=== PATIENT | female | born 1950 | race Caucasian/White ===

== ENCOUNTER 2018-01-02 12:12 | Emergency (ER) | payer MEDICARE, MEDICAID ==
[~2018-01-02] VITALS: Ht 172.7 cm; Wt 100.9 kg
[~2018-01-02 12:12] MED LIST: ASPI-611 PO; ATE25T PO; CALC-157; CHLO500T3 PO; CHOL100046 PO; DESV50TA PO; DICY10CA88 PO; DIGO250T PO; DOCU-28 PO; ESTR1TAB19 PO; FLUC150T5 PO; GABA300C PO; HYDR-2561 PO; HYDR12.522 PO; LEVO200T46 PO; LIPA1CAP18 PO; LORA10TA7 PO; MONT10TA21 PO; MV W1TAB4 PO; NYSPWD TP; OMEP20TA5 PO; PRAZ2CAP2 PO; ROPI1TAB4 PO; SUCR1ORA PO; TRAZ-146 PO; VITA-268 PO
[2018-01-02 12:56] LABS: BASOPHILS # (AUTO) 0.1 X10'3 (0-0.2); BASOPHILS % (AUTO) 0.5 % (0-1); EOSINOPHILS # (AUTO) 0.3 X10'3 (0-0.9); EOSINOPHILS % (AUTO) 1.8 % (0-6); HEMATOCRIT 41.7 % (35.0-45.0); HEMOGLOBIN 14.4 g/dl (12.0-16.0); LYMPHOCYTES % (AUTO) 22.6 % (21-51); MEAN CORPUSCULAR HEMOGLOBIN 30.3 PG (27.0-31.0); MEAN CORPUSCULAR HGB CONC 34.4 % (33.0-36.5); MEAN PLATELET VOLUME 8.3 FL (7.4-10.4); MONOCYTES % (AUTO) 5.7 % (2-12); NEUTROPHILS # (AUTO) 12.4 X10'3 (1.8-7.7); NEUTROPHILS % (AUTO) 69.4 % (42-75); PLATELET COUNT 266 X10'3 (140-440); RED BLOOD COUNT 4.74 X10'6 (4.20-5.60); WHITE BLOOD COUNT 17.8 X10'3 (4.5-11.0)
[2018-01-02 13:08] LABS: ALANINE AMINOTRANSFERASE 34 U/L (12-78); ALBUMIN 3.2 G/DL (3.4-5.0); ALBUMIN/GLOBULIN RATIO 0.8 (1.1-1.5); ALKALINE PHOSPHATASE 108 IU/L (46-116); ANION GAP 9 (8-16); ASPARTATE AMINO TRANSFERASE 17 U/L (10-37); BILIRUBIN,TOTAL 0.4 MG/DL (0.1-1.0); BLOOD UREA NITROGEN 15 MG/DL (7-18); BUN/CREATININE RATIO 16.9 (6.6-38.0); CALCIUM 8.5 MG/DL (8.5-10.1); CHLORIDE 104 MMOL/L (99-107); CREATININE 0.89 MG/DL (0.40-0.90); GLUCOSE 143 MG/DL (70-104); POTASSIUM 3.8 MMOL/L (3.5-5.1); SODIUM 138 MMOL/L (135-145); TOTAL CARBON DIOXIDE 24.9 MMOL/L (24-32); TOTAL PROTEIN 7.4 G/DL (6.4-8.2); eGFR 64 ML/MIN
[2018-01-02] MEDS ORDERED: benzonatate 100mg capsule PO ONE (13:15)
[2018-01-02 13:17] LABS: TOTAL CELLS COUNTED 100
[2018-01-02 13:18] LABS: PLATELET ESTIMATE NORMAL
[2018-01-02] MEDS ORDERED: CODE10LI PO (13:34)
[2018-01-02] MEDS ORDERED: LEVO750T21 PO (13:34)
[2018-01-02] MEDS ORDERED: BENZ-16 PO (13:34)
[2018-01-02] MEDS ORDERED: levoFLOXACIN 750MG TABLET PO ONE (13:35)
[2018-01-02 13:55] VITALS: BP 154/84
== END 2018-01-02 13:57 | disposition home or self-care (01) ==
LOC: ER 12:12
DX: R05 Cough (principal); J18.9 Pneumonia, unspecified organism; I48.91 Unspecified atrial fibrillation; E78.00 Pure hypercholesterolemia, unspecified; I10 Essential (primary) hypertension; J44.0 Chronic obstructive pulmonary disease with (acute) lower respiratory infection; K21.9 Gastro-esophageal reflux disease without esophagitis; E03.9 Hypothyroidism, unspecified; M79.7 Fibromyalgia; Z90.710 Acquired absence of both cervix and uterus; Z88.5 Allergy status to narcotic agent; Z60.2 Problems related to living alone; Z79.899 Other long term (current) drug therapy
CPT/HCPCS: 36415; 71046; 80053; 83605; 83880; 85025; 87040; 93005; 99285

== ENCOUNTER 2018-02-23 10:48 | Emergency (ER) | payer MEDICARE, MEDICAID ==
[~2018-02-23] VITALS: Ht 172.7 cm; Wt 100.9 kg
[~2018-02-23 10:48] MED LIST changes: +CODE10LI PO
[2018-02-23 12:12] LABS: CLARITY,URINE CLOUDY (Clear); COLOR,URINE YELLOW (Yellow); GLUCOSE, URINE NEGATIVE (Neg); KETONES,URINE NEGATIVE (Neg); LEUKOCYTE ESTERASE ,URINE NEGATIVE (Neg); NITRITES, URINE NEGATIVE (Neg); OCCULT BLOOD,URINE NEGATIVE (Neg); PROTEIN,URINE TRACE mg/dl (Neg); UROBILINOGEN,URINE 0.2 E.U/dL (0.2-1.0)
[2018-02-23 12:15] LABS: UA COLLECTION TYPE CLN CATCH MIDSTREAM
[2018-02-23 12:18] LABS: BACTERIA,URINE 2+ /HPF (Neg); HYALINE CASTS 0-3 /LPF (NEGATIVE); MUCUS STRANDS FEW /LPF (Neg); RBC,URINE 0-2 /HPF (0-2); SQUAMOUS EPITHELIAL CELL,UR MANY /LPF (FEW); WBC,URINE 0-4 /HPF (0-4)
[2018-02-23] MEDS ORDERED: HYDROcodone/acetaminophen 10/325mg tab PO ONE (13:20)
[2018-02-23] MEDS ORDERED: vancomycin/NS 1 GM ADD-VANTAGE 250 ML IV ONE (13:20)
[2018-02-23] MEDS ORDERED: ibuprofen 200mg tablet PO ONE (13:20)
[2018-02-23] MEDS ORDERED: CEPH500C5 PO (14:43)
[2018-02-23 16:52] VITALS: BP 138/46
[2018-02-23] MEDS ORDERED: HYDR-3965 PO (17:55)
== END 2018-02-23 16:59 | disposition home or self-care (01) ==
LOC: ER 10:49
DX: S39.012A Strain of muscle, fascia and tendon of lower back, initial encounter (principal); K21.9 Gastro-esophageal reflux disease without esophagitis; L03.115 Cellulitis of right lower limb; I48.91 Unspecified atrial fibrillation; E78.00 Pure hypercholesterolemia, unspecified; I10 Essential (primary) hypertension; F17.200 Nicotine dependence, unspecified, uncomplicated; J44.9 Chronic obstructive pulmonary disease, unspecified; E11.9 Type 2 diabetes mellitus without complications; E03.9 Hypothyroidism, unspecified; G89.29 Other chronic pain; M79.7 Fibromyalgia; Z98.890 Other specified postprocedural states; Z60.2 Problems related to living alone; Z79.82 Long term (current) use of aspirin; X58.XXXA Exposure to other specified factors, initial encounter; Y93.89 Activity, other specified; Y92.89 Other specified places as the place of occurrence of the external cause; Y99.8 Other external cause status
CPT/HCPCS: 81001; 82948; 96365; 96366; 99285; A6251; J3370; 99283

== ENCOUNTER 2018-03-02 10:24 | Day surgery (SDC) | payer MEDICARE, MEDICAID ==
[~2018-03-02 10:24] MED LIST changes: +CEPH500C5 PO; +HYDR-3965 PO
[2018-03-02] MEDS ORDERED: LIDOcaine 2% 5ml jelly ONE ×2 (11:08→12:05)
[2018-03-02] MEDS ORDERED: AMYL1CAP52 (11:40)
[2018-03-02] MEDS ORDERED: SIMV10TA2 PO (11:43)
[2018-03-02] MEDS ORDERED: BUSP5TAB3 PO (11:44)
[2018-03-02] MEDS ORDERED: IBUP-1984 PO (11:45)
[2018-03-02] MEDS ORDERED: GLYB2.5T4 PO (11:45)
[2018-03-02] MEDS ORDERED: DICY10CA14 PO (11:46)
== END 2018-03-02 12:29 | disposition home or self-care (01) ==
LOC: WOUND CARE 10:24
PROVIDERS: ATTEND Surgery
DX: T81.31XA Disruption of external operation (surgical) wound, not elsewhere classified, initial encounter (principal); L97.112 Non-pressure chronic ulcer of right thigh with fat layer exposed; C44.721 Squamous cell carcinoma of skin of unspecified lower limb, including hip; J44.9 Chronic obstructive pulmonary disease, unspecified; I10 Essential (primary) hypertension; K21.9 Gastro-esophageal reflux disease without esophagitis; E03.9 Hypothyroidism, unspecified; E78.00 Pure hypercholesterolemia, unspecified; I48.91 Unspecified atrial fibrillation; Z79.82 Long term (current) use of aspirin; Z87.891 Personal history of nicotine dependence; Y83.8 Other surgical procedures as the cause of abnormal reaction of the patient, or of later complication, without mention of misadventure at the time of the procedure
CPT/HCPCS: 11042; 36416; 82948; A6021; A6206; A6212

== ENCOUNTER 2018-03-08 09:11 | Day surgery (SDC) | payer MEDICARE, MEDICAID ==
[~2018-03-08 09:11] MED LIST changes: +AMYL1CAP52; +BUSP5TAB3 PO; +DICY10CA14 PO; +GLYB2.5T4 PO; -HYDR-3965 PO; +IBUP-1984 PO; +SIMV10TA2 PO
[2018-03-08] MEDS ORDERED: LIDOcaine 2% 5ml jelly ONE (09:33)
== END 2018-03-08 10:21 | disposition home or self-care (01) ==
LOC: WOUND CARE 09:11
PROVIDERS: ATTEND Surgery
DX: T81.31XD Disruption of external operation (surgical) wound, not elsewhere classified, subsequent encounter (principal); L97.112 Non-pressure chronic ulcer of right thigh with fat layer exposed; C44.721 Squamous cell carcinoma of skin of unspecified lower limb, including hip; J44.9 Chronic obstructive pulmonary disease, unspecified; I10 Essential (primary) hypertension; K21.9 Gastro-esophageal reflux disease without esophagitis; E03.9 Hypothyroidism, unspecified; E78.00 Pure hypercholesterolemia, unspecified; I48.91 Unspecified atrial fibrillation; Z79.82 Long term (current) use of aspirin; Z87.891 Personal history of nicotine dependence; Y83.8 Other surgical procedures as the cause of abnormal reaction of the patient, or of later complication, without mention of misadventure at the time of the procedure
CPT/HCPCS: 11042; 82948; 87070; 87075; 87102; 87176; A6021; A6206; A6212

== ENCOUNTER 2018-03-14 09:53 | Day surgery (SDC) | payer MEDICARE, MEDICAID ==
[2018-03-14] MEDS ORDERED: LIDOcaine 2% 5ml jelly ONE (11:00)
== END 2018-03-14 11:53 | disposition home or self-care (01) ==
LOC: WOUND CARE 09:53
PROVIDERS: ATTEND Surgery
DX: T81.31XD Disruption of external operation (surgical) wound, not elsewhere classified, subsequent encounter (principal); L97.112 Non-pressure chronic ulcer of right thigh with fat layer exposed; C44.721 Squamous cell carcinoma of skin of unspecified lower limb, including hip; J44.9 Chronic obstructive pulmonary disease, unspecified; I10 Essential (primary) hypertension; K21.9 Gastro-esophageal reflux disease without esophagitis; E03.9 Hypothyroidism, unspecified; E78.00 Pure hypercholesterolemia, unspecified; I48.91 Unspecified atrial fibrillation; Z79.82 Long term (current) use of aspirin; Z87.891 Personal history of nicotine dependence; Y83.8 Other surgical procedures as the cause of abnormal reaction of the patient, or of later complication, without mention of misadventure at the time of the procedure
CPT/HCPCS: 36416; 82948; 97597; A6021; A6206; A6212

== ENCOUNTER 2018-03-21 10:14 | Day surgery (SDC) | payer MEDICARE, MEDICAID ==
[~2018-03-21 10:14] MED LIST changes: -CEPH500C5 PO
[2018-03-21] MEDS ORDERED: LIDOcaine 2% 5ml jelly ONE (10:37)
== END 2018-03-21 12:24 | disposition home or self-care (01) ==
LOC: WOUND CARE 10:14
PROVIDERS: ATTEND Surgery
DX: T81.31XD Disruption of external operation (surgical) wound, not elsewhere classified, subsequent encounter (principal); L97.112 Non-pressure chronic ulcer of right thigh with fat layer exposed; C44.721 Squamous cell carcinoma of skin of unspecified lower limb, including hip; J44.9 Chronic obstructive pulmonary disease, unspecified; I10 Essential (primary) hypertension; K21.9 Gastro-esophageal reflux disease without esophagitis; E03.9 Hypothyroidism, unspecified; E78.00 Pure hypercholesterolemia, unspecified; I48.91 Unspecified atrial fibrillation; Z79.82 Long term (current) use of aspirin; Z87.891 Personal history of nicotine dependence; Y83.8 Other surgical procedures as the cause of abnormal reaction of the patient, or of later complication, without mention of misadventure at the time of the procedure
CPT/HCPCS: 11042; A6021; A6206; A6446

== ENCOUNTER 2018-03-28 09:26 | Day surgery (SDC) | payer MEDICARE, MEDICAID ==
[2018-03-28] MEDS ORDERED: LIDOcaine 2% 5ml jelly ONE (09:43)
== END 2018-03-28 10:10 | disposition home or self-care (01) ==
LOC: WOUND CARE 09:26
PROVIDERS: ATTEND Surgery
DX: T81.31XD Disruption of external operation (surgical) wound, not elsewhere classified, subsequent encounter (principal); L97.112 Non-pressure chronic ulcer of right thigh with fat layer exposed; C44.721 Squamous cell carcinoma of skin of unspecified lower limb, including hip; J44.9 Chronic obstructive pulmonary disease, unspecified; I10 Essential (primary) hypertension; K21.9 Gastro-esophageal reflux disease without esophagitis; E03.9 Hypothyroidism, unspecified; E78.00 Pure hypercholesterolemia, unspecified; I48.91 Unspecified atrial fibrillation; Z79.82 Long term (current) use of aspirin; Z87.891 Personal history of nicotine dependence; Y83.8 Other surgical procedures as the cause of abnormal reaction of the patient, or of later complication, without mention of misadventure at the time of the procedure
CPT/HCPCS: 11042; 36416; 82948; A6021; A6206; A6446

== ENCOUNTER 2018-04-04 09:55 | Day surgery (SDC) | payer MEDICARE, MEDICAID ==
[2018-04-04] MEDS ORDERED: LIDOcaine 2% 5ml jelly ONE (10:06)
== END 2018-04-04 11:10 | disposition home or self-care (01) ==
LOC: WOUND CARE 09:55
PROVIDERS: ATTEND Surgery
DX: T81.31XD Disruption of external operation (surgical) wound, not elsewhere classified, subsequent encounter (principal); L97.112 Non-pressure chronic ulcer of right thigh with fat layer exposed; C44.721 Squamous cell carcinoma of skin of unspecified lower limb, including hip; J44.9 Chronic obstructive pulmonary disease, unspecified; I10 Essential (primary) hypertension; K21.9 Gastro-esophageal reflux disease without esophagitis; E03.9 Hypothyroidism, unspecified; E78.00 Pure hypercholesterolemia, unspecified; I48.91 Unspecified atrial fibrillation; Z79.82 Long term (current) use of aspirin; Z87.891 Personal history of nicotine dependence
CPT/HCPCS: 97597; A6021

== ENCOUNTER 2018-04-11 09:50 | Day surgery (SDC) | payer MEDICARE, MEDICAID ==
[2018-04-11] MEDS ORDERED: LIDOcaine 2% 5ml jelly ONE (10:10)
[2018-04-11] MEDS ORDERED: nystatin 15 GM powder TP ONE (10:23)
== END 2018-04-11 11:31 | disposition home or self-care (01) ==
LOC: WOUND CARE 09:50
PROVIDERS: ATTEND Surgery
DX: T81.31XD Disruption of external operation (surgical) wound, not elsewhere classified, subsequent encounter (principal); L97.112 Non-pressure chronic ulcer of right thigh with fat layer exposed; C44.721 Squamous cell carcinoma of skin of unspecified lower limb, including hip; J44.9 Chronic obstructive pulmonary disease, unspecified; I10 Essential (primary) hypertension; K21.9 Gastro-esophageal reflux disease without esophagitis; E03.9 Hypothyroidism, unspecified; E78.00 Pure hypercholesterolemia, unspecified; I48.91 Unspecified atrial fibrillation; Z79.82 Long term (current) use of aspirin; Z87.891 Personal history of nicotine dependence
CPT/HCPCS: 97597; A6021

== ENCOUNTER 2018-04-18 10:12 | Day surgery (SDC) | payer MEDICARE, MEDICAID ==
[2018-04-18] MEDS ORDERED: LIDOcaine 2% 5ml jelly ONE (11:05)
== END 2018-04-18 11:45 | disposition home or self-care (01) ==
LOC: WOUND CARE 10:12
PROVIDERS: ATTEND Surgery
DX: T81.31XD Disruption of external operation (surgical) wound, not elsewhere classified, subsequent encounter (principal); L97.112 Non-pressure chronic ulcer of right thigh with fat layer exposed; C44.721 Squamous cell carcinoma of skin of unspecified lower limb, including hip; J44.9 Chronic obstructive pulmonary disease, unspecified; I10 Essential (primary) hypertension; K21.9 Gastro-esophageal reflux disease without esophagitis; E03.9 Hypothyroidism, unspecified; E78.00 Pure hypercholesterolemia, unspecified; I48.91 Unspecified atrial fibrillation; Z79.82 Long term (current) use of aspirin; Z87.891 Personal history of nicotine dependence; Y83.8 Other surgical procedures as the cause of abnormal reaction of the patient, or of later complication, without mention of misadventure at the time of the procedure
CPT/HCPCS: 11042; 82948; A6021; A6206

== ENCOUNTER 2018-04-25 09:57 | Day surgery (SDC) | payer MEDICARE, MEDICAID ==
[2018-04-25] MEDS ORDERED: LIDOcaine 2% 5ml jelly ONE (10:39)
== END 2018-04-25 11:20 | disposition home or self-care (01) ==
LOC: WOUND CARE 09:57
PROVIDERS: ATTEND Surgery
DX: T81.31XD Disruption of external operation (surgical) wound, not elsewhere classified, subsequent encounter (principal); L97.112 Non-pressure chronic ulcer of right thigh with fat layer exposed; C44.721 Squamous cell carcinoma of skin of unspecified lower limb, including hip; J44.9 Chronic obstructive pulmonary disease, unspecified; I10 Essential (primary) hypertension; K21.9 Gastro-esophageal reflux disease without esophagitis; E03.9 Hypothyroidism, unspecified; E78.00 Pure hypercholesterolemia, unspecified; I48.91 Unspecified atrial fibrillation; Z79.82 Long term (current) use of aspirin; Z87.891 Personal history of nicotine dependence; Y83.8 Other surgical procedures as the cause of abnormal reaction of the patient, or of later complication, without mention of misadventure at the time of the procedure
CPT/HCPCS: 97597; A6021; A6206

== ENCOUNTER 2018-05-02 10:07 | Day surgery (SDC) | payer MEDICARE, MEDICAID ==
[2018-05-02] MEDS ORDERED: LIDOcaine 2% 5ml jelly ONE (11:03)
== END 2018-05-02 11:54 | disposition home or self-care (01) ==
LOC: WOUND CARE 10:07
PROVIDERS: ATTEND Surgery
DX: T81.31XD Disruption of external operation (surgical) wound, not elsewhere classified, subsequent encounter (principal); L97.112 Non-pressure chronic ulcer of right thigh with fat layer exposed; C44.721 Squamous cell carcinoma of skin of unspecified lower limb, including hip; J44.9 Chronic obstructive pulmonary disease, unspecified; I10 Essential (primary) hypertension; K21.9 Gastro-esophageal reflux disease without esophagitis; E03.9 Hypothyroidism, unspecified; E78.00 Pure hypercholesterolemia, unspecified; I48.91 Unspecified atrial fibrillation; Z79.82 Long term (current) use of aspirin; Z87.891 Personal history of nicotine dependence; Y83.8 Other surgical procedures as the cause of abnormal reaction of the patient, or of later complication, without mention of misadventure at the time of the procedure
CPT/HCPCS: 36416; 82948; 97597; A6021; A6206

== ENCOUNTER 2018-05-09 10:00 | Day surgery (SDC) | payer MEDICARE, MEDICAID ==
[2018-05-09] MEDS ORDERED: LIDOcaine 2% 5ml jelly ONE (10:12)
[2018-05-09] MEDS ORDERED: HYDR-565 PO (14:07)
== END 2018-05-09 11:16 | disposition home or self-care (01) ==
LOC: WOUND CARE 10:00
PROVIDERS: ATTEND Surgery
DX: T81.31XD Disruption of external operation (surgical) wound, not elsewhere classified, subsequent encounter (principal); L97.112 Non-pressure chronic ulcer of right thigh with fat layer exposed; C44.721 Squamous cell carcinoma of skin of unspecified lower limb, including hip; J44.9 Chronic obstructive pulmonary disease, unspecified; I10 Essential (primary) hypertension; K21.9 Gastro-esophageal reflux disease without esophagitis; E03.9 Hypothyroidism, unspecified; E78.00 Pure hypercholesterolemia, unspecified; I48.91 Unspecified atrial fibrillation; Z79.82 Long term (current) use of aspirin; Z87.891 Personal history of nicotine dependence; Y83.8 Other surgical procedures as the cause of abnormal reaction of the patient, or of later complication, without mention of misadventure at the time of the procedure
CPT/HCPCS: 36416; 82948; 97597; A6021; A6196; A6206

== ENCOUNTER 2018-05-09 12:48 | Emergency (ER) | payer MEDICARE, MEDICAID ==
[~2018-05-09] VITALS: Ht 172.7 cm; Wt 100.0 kg
[2018-05-09] MEDS ORDERED: HYDROcodone/acetaminophen 10/325mg tab PO ONE (13:05)
[2018-05-09] MEDS ORDERED: HYDR-565 PO (14:07)
[2018-05-09 14:32] VITALS: BP 142/62
== END 2018-05-09 14:35 | disposition home or self-care (01) ==
LOC: ER 12:49
DX: S90.32XA Contusion of left foot, initial encounter (principal); S80.02XA Contusion of left knee, initial encounter; I48.91 Unspecified atrial fibrillation; E78.00 Pure hypercholesterolemia, unspecified; I10 Essential (primary) hypertension; J44.9 Chronic obstructive pulmonary disease, unspecified; E11.9 Type 2 diabetes mellitus without complications; K21.9 Gastro-esophageal reflux disease without esophagitis; M19.90 Unspecified osteoarthritis, unspecified site; G89.29 Other chronic pain; E03.9 Hypothyroidism, unspecified; Z90.710 Acquired absence of both cervix and uterus; Z98.890 Other specified postprocedural states; Z60.2 Problems related to living alone; Z88.8 Allergy status to other drugs, medicaments and biological substances; Z88.5 Allergy status to narcotic agent; Z79.82 Long term (current) use of aspirin; Z79.899 Other long term (current) drug therapy; W04.XXXA Fall while being carried or supported by other persons, initial encounter; Y93.89 Activity, other specified; Y92.89 Other specified places as the place of occurrence of the external cause; Y99.8 Other external cause status
CPT/HCPCS: 29515; 73630; 99284; L4360

== ENCOUNTER 2018-05-16 10:10 | Day surgery (SDC) | payer MEDICARE, MEDICAID ==
[~2018-05-16 10:10] MED LIST changes: +HYDR-565 PO
[2018-05-16] MEDS ORDERED: LIDOcaine 2% 5ml jelly ONE (11:01)
== END 2018-05-16 11:25 | disposition home or self-care (01) ==
LOC: WOUND CARE 10:10
PROVIDERS: ATTEND Surgery
DX: T81.31XD Disruption of external operation (surgical) wound, not elsewhere classified, subsequent encounter (principal); L97.112 Non-pressure chronic ulcer of right thigh with fat layer exposed; C44.721 Squamous cell carcinoma of skin of unspecified lower limb, including hip; J44.9 Chronic obstructive pulmonary disease, unspecified; I10 Essential (primary) hypertension; K21.9 Gastro-esophageal reflux disease without esophagitis; E03.9 Hypothyroidism, unspecified; E78.00 Pure hypercholesterolemia, unspecified; I48.91 Unspecified atrial fibrillation; Z79.82 Long term (current) use of aspirin; Z87.891 Personal history of nicotine dependence; Y83.8 Other surgical procedures as the cause of abnormal reaction of the patient, or of later complication, without mention of misadventure at the time of the procedure
CPT/HCPCS: 36416; 82948; 97597; A6021; A6212

== ENCOUNTER 2018-05-23 10:10 | Day surgery (SDC) | payer MEDICARE, MEDICAID ==
[2018-05-23] MEDS ORDERED: LIDOcaine 2% 5ml jelly ONE (11:30)
== END 2018-05-23 11:46 | disposition home or self-care (01) ==
LOC: WOUND CARE 10:10
PROVIDERS: ATTEND Surgery
DX: T81.31XD Disruption of external operation (surgical) wound, not elsewhere classified, subsequent encounter (principal); L97.112 Non-pressure chronic ulcer of right thigh with fat layer exposed; C44.721 Squamous cell carcinoma of skin of unspecified lower limb, including hip; J44.9 Chronic obstructive pulmonary disease, unspecified; I10 Essential (primary) hypertension; K21.9 Gastro-esophageal reflux disease without esophagitis; E03.9 Hypothyroidism, unspecified; E78.00 Pure hypercholesterolemia, unspecified; I48.91 Unspecified atrial fibrillation; Z79.82 Long term (current) use of aspirin; Z87.891 Personal history of nicotine dependence; Y83.8 Other surgical procedures as the cause of abnormal reaction of the patient, or of later complication, without mention of misadventure at the time of the procedure
CPT/HCPCS: 36416; 82948; 97597; A6021; A6212

== ENCOUNTER 2018-05-30 09:55 | Outpatient (CLI) | payer MEDICARE, MEDICAID | END 2018-05-30 11:21 | disposition home or self-care (01) | LOC: WOUND CARE 09:55 → EDSTATUS 10:00 → WOUND CARE 11:21 | PROVIDERS: ATTEND Surgery | DX: T81.31XD Disruption of external operation (surgical) wound, not elsewhere classified, subsequent encounter (principal); L97.112 Non-pressure chronic ulcer of right thigh with fat layer exposed; C44.721 Squamous cell carcinoma of skin of unspecified lower limb, including hip; J44.9 Chronic obstructive pulmonary disease, unspecified; I10 Essential (primary) hypertension; K21.9 Gastro-esophageal reflux disease without esophagitis; E03.9 Hypothyroidism, unspecified; E78.00 Pure hypercholesterolemia, unspecified; I48.91 Unspecified atrial fibrillation; Z79.82 Long term (current) use of aspirin; Z87.891 Personal history of nicotine dependence; Y83.8 Other surgical procedures as the cause of abnormal reaction of the patient, or of later complication, without mention of misadventure at the time of the procedure | CPT/HCPCS: 82948; 99215; A6021; A6212 ==

== ENCOUNTER 2018-06-09 10:57 | Emergency (ER) | payer MEDICARE, MEDICAID ==
[~2018-06-09] VITALS: Ht 167.6 cm; Wt 105.0 kg
[~2018-06-09 10:57] MED LIST changes: +AZIT500T PO
[2018-06-09 12:16] LABS: BASOPHILS # (AUTO) 0.1 X10'3 (0-0.2); BASOPHILS % (AUTO) 0.5 % (0-1); EOSINOPHILS # (AUTO) 0.3 X10'3 (0-0.9); EOSINOPHILS % (AUTO) 2.4 % (0-6); HEMATOCRIT 42.6 % (35.0-45.0); HEMOGLOBIN 14.7 g/dl (12.0-16.0); LYMPHOCYTES # (AUTO) 3.9 X10'3 (1.1-4.8); LYMPHOCYTES % (AUTO) 28.9 % (21-51); MEAN CORPUSCULAR HGB CONC 34.5 % (33.0-36.5); MEAN CORPUSCULAR VOLUME 86.9 FL (78-98); MEAN PLATELET VOLUME 8.2 FL (7.4-10.4); MONOCYTES # (AUTO) 0.8 X10'3 (0-0.9); MONOCYTES % (AUTO) 5.6 % (2-12); NEUTROPHILS # (AUTO) 8.5 X10'3 (1.8-7.7); NEUTROPHILS % (AUTO) 62.6 % (42-75); PLATELET COUNT 234 X10'3 (140-440); RED BLOOD COUNT 4.91 X10'6 (4.20-5.60); RED CELL DISTRIBUTION WIDTH 13.1 % (11.5-14.5); WHITE BLOOD COUNT 13.5 X10'3 (4.5-11.0)
[2018-06-09 12:34] LABS: ALANINE AMINOTRANSFERASE 21 U/L (12-78); ALBUMIN 3.2 G/DL (3.4-5.0); ALBUMIN/GLOBULIN RATIO 0.8 (1.1-1.5); ALKALINE PHOSPHATASE 103 IU/L (46-116); ANION GAP 11 (8-16); ASPARTATE AMINO TRANSFERASE 18 U/L (10-37); BILIRUBIN,TOTAL 0.2 MG/DL (0.1-1.0); BLOOD UREA NITROGEN 9 MG/DL (7-18); BUN/CREATININE RATIO 8.3 (6.6-38.0); CHLORIDE 104 MMOL/L (99-107); CREATININE 1.08 MG/DL (0.40-0.90); GLUCOSE 145 MG/DL (70-104); POTASSIUM 3.7 MMOL/L (3.5-5.1); SODIUM 139 MMOL/L (135-145); TOTAL CARBON DIOXIDE 23.8 MMOL/L (24-32); TOTAL PROTEIN 7.4 G/DL (6.4-8.2); eGFR 51 ML/MIN
[2018-06-09] MEDS ORDERED: normal saline 1000ML IV soln IVB ONE ×2 (13:10→14:10)
[2018-06-09] MEDS ORDERED: methylPREDNISolone sod succ 125mg/2ml vial IV ONE (13:10)
[2018-06-09] MEDS ORDERED: iohexol 350MG/ML 100ml bottle IV ONE (13:17)
[2018-06-09] MEDS ORDERED: albuterol 2.5 MG/3 ML nebule NEB ONE (14:10)
[2018-06-09] MEDS ORDERED: PRED20TA PO (14:50)
[2018-06-09 15:09] VITALS: BP 165/83
== END 2018-06-09 15:05 | disposition home or self-care (01) ==
LOC: ER 10:57
DX: J44.1 Chronic obstructive pulmonary disease with (acute) exacerbation (principal); J40 Bronchitis, not specified as acute or chronic; E78.00 Pure hypercholesterolemia, unspecified; I10 Essential (primary) hypertension; K21.9 Gastro-esophageal reflux disease without esophagitis; E11.9 Type 2 diabetes mellitus without complications; E03.9 Hypothyroidism, unspecified; M19.90 Unspecified osteoarthritis, unspecified site; G89.29 Other chronic pain; I48.91 Unspecified atrial fibrillation; Z90.710 Acquired absence of both cervix and uterus; Z98.890 Other specified postprocedural states; Z60.2 Problems related to living alone; Z88.0 Allergy status to penicillin; Z88.5 Allergy status to narcotic agent; Z88.8 Allergy status to other drugs, medicaments and biological substances; Z79.82 Long term (current) use of aspirin; Z79.899 Other long term (current) drug therapy
CPT/HCPCS: 36415; 71045; 71275; 80053; 83605; 85025; 87040; 93005; 94640; 94760; 96374; 99285; J2930; J7030; Q9967

== ENCOUNTER 2019-03-24 08:29 | Emergency (ER) | payer MEDICARE, MEDICAID ==
[~2019-03-24] VITALS: Ht 172.7 cm; Wt 100.0 kg
[~2019-03-24 08:29] MED LIST changes: -AZIT500T PO; -HYDR-565 PO; -TRAZ-146 PO; +TRAZ-219 PO
[2019-03-24] MEDS ORDERED: ipratropium/albuterol 3ml nebule NEB ONE (09:20)
[2019-03-24 09:39] LABS: BASOPHILS # (AUTO) 0.1 X10'3 (0-0.2); BASOPHILS % (AUTO) 0.6 % (0-1); EOSINOPHILS # (AUTO) 0.2 X10'3 (0-0.9); EOSINOPHILS % (AUTO) 2.3 % (0-6); HEMOGLOBIN 14.7 g/dl (12.0-16.0); LYMPHOCYTES # (AUTO) 2.7 X10'3 (1.1-4.8); MEAN CORPUSCULAR HGB CONC 34.2 g/dL (33.0-36.5); MEAN CORPUSCULAR VOLUME 84.9 FL (78-98); MEAN PLATELET VOLUME 8.3 FL (7.4-10.4); MONOCYTES % (AUTO) 8.9 % (2-12); NEUTROPHILS # (AUTO) 6.8 X10'3 (1.8-7.7); NEUTROPHILS % (AUTO) 63.2 % (42-75); PLATELET COUNT 234 X10'3 (140-440); RED BLOOD COUNT 5.06 X10'6 (4.20-5.60); RED CELL DISTRIBUTION WIDTH 13.6 % (11.5-14.5); WHITE BLOOD COUNT 10.8 X10'3 (4.5-11.0)
[2019-03-24 09:44] LABS: PARTIAL THROMBOPLASTIN TIME 28 SECONDS (22-32)
[2019-03-24 09:45] LABS: ALANINE AMINOTRANSFERASE 50 U/L (12-78); ALBUMIN 3.1 G/DL (3.4-5.0); ALBUMIN/GLOBULIN RATIO 0.7 (1.1-1.5); ALKALINE PHOSPHATASE 105 IU/L (46-116); ANION GAP 10 (8-16); ASPARTATE AMINO TRANSFERASE 41 U/L (10-37); BILIRUBIN,TOTAL 0.2 MG/DL (0.1-1.0); BLOOD UREA NITROGEN 13 MG/DL (7-18); BUN/CREATININE RATIO 14.8 (6.6-38.0); CALCIUM 9.1 MG/DL (8.5-10.1); CHLORIDE 104 MMOL/L (99-107); CREATININE 0.88 MG/DL (0.40-0.90); GLUCOSE 184 MG/DL (70-104); POTASSIUM 3.9 MMOL/L (3.5-5.1); SODIUM 138 MMOL/L (135-145); TOTAL CARBON DIOXIDE 24.4 MMOL/L (24-32); TOTAL PROTEIN 7.3 G/DL (6.4-8.2); eGFR 64 ML/MIN
[2019-03-24 09:50] LABS: MAGNESIUM 1.7 MG/DL (1.5-2.4)
[2019-03-24] MEDS ORDERED: vitamin d PO (10:08)
[2019-03-24] MEDS ORDERED: LIPA1CAP18 PO (10:12)
[2019-03-24] MEDS ORDERED: SYN0.088T PO (10:12)
--- NOTE | 2019-03-24 10:17 | NUR ---
relieving RN for break, pt is resting quietly on gurney, resp even and unlabored,
[2019-03-24] MEDS ORDERED: AZIT250T2 PO (10:43)
[2019-03-24] MEDS ORDERED: PRED20TA PO (10:43)
[2019-03-24] MEDS ORDERED: azithromycin 250mg tablet PO ONE (10:45)
[2019-03-24] MEDS ORDERED: predniSONE 20 mg tablet PO ONE (10:50)
[2019-03-24 11:02] VITALS: BP 138/63
== END 2019-03-24 11:04 | disposition home or self-care (01) ==
LOC: ER 08:30
DX: J44.1 Chronic obstructive pulmonary disease with (acute) exacerbation (principal); I48.91 Unspecified atrial fibrillation; E78.00 Pure hypercholesterolemia, unspecified; I10 Essential (primary) hypertension; I25.2 Old myocardial infarction; K21.9 Gastro-esophageal reflux disease without esophagitis; E11.9 Type 2 diabetes mellitus without complications; E03.9 Hypothyroidism, unspecified; M19.90 Unspecified osteoarthritis, unspecified site; F17.200 Nicotine dependence, unspecified, uncomplicated; G89.29 Other chronic pain; Z90.710 Acquired absence of both cervix and uterus; Z98.890 Other specified postprocedural states; Z88.8 Allergy status to other drugs, medicaments and biological substances; Z79.82 Long term (current) use of aspirin; Z79.2 Long term (current) use of antibiotics; Z79.899 Other long term (current) drug therapy
CPT/HCPCS: 36415; 71045; 80053; 80162; 83735; 83880; 84484; 85025; 85610; 85730; 93005; 94640; 94760; 99284; J7512

== ENCOUNTER 2019-04-18 12:21 | Inpatient (IN) | payer MEDICARE, MEDICAID ==
[~2019-04-18] VITALS: Ht 172.7 cm; Wt 104.9 kg
[~2019-04-18 12:21] MED LIST changes: -AMYL1CAP52; -CHOL100046 PO; -CODE10LI PO; -DICY10CA14 PO; -DICY10CA88 PO; -FLUC150T5 PO; -GABA300C PO; -GLYB2.5T4 PO; -IBUP-1984 PO; -LEVO200T46 PO; +PRED20TA PO; -SIMV10TA2 PO; +SYN0.088T PO; -TRAZ-219 PO; +vitamin d PO
[2019-04-18] MEDS ORDERED: normal saline 1000ML IV soln IVB ONE (13:35)
[2019-04-18 13:54] LABS: BASOPHILS # (AUTO) 0.1 X10'3 (0-0.2); BASOPHILS % (AUTO) 0.8 % (0-1); EOSINOPHILS # (AUTO) 0.3 X10'3 (0-0.9); HEMATOCRIT 41.3 % (35.0-45.0); HEMOGLOBIN 14.4 g/dl (12.0-16.0); LYMPHOCYTES # (AUTO) 2.9 X10'3 (1.1-4.8); MEAN CORPUSCULAR HGB CONC 34.9 g/dL (33.0-36.5); MEAN CORPUSCULAR VOLUME 85.9 FL (78-98); MEAN PLATELET VOLUME 8.3 FL (7.4-10.4); MONOCYTES # (AUTO) 0.8 X10'3 (0-0.9); NEUTROPHILS # (AUTO) 5.7 X10'3 (1.8-7.7); NEUTROPHILS % (AUTO) 58.2 % (42-75); PLATELET COUNT 201 X10'3 (140-440); RED BLOOD COUNT 4.81 X10'6 (4.20-5.60); RED CELL DISTRIBUTION WIDTH 13.8 % (11.5-14.5); WHITE BLOOD COUNT 9.7 X10'3 (4.5-11.0)
[2019-04-18 14:08] LABS: ALANINE AMINOTRANSFERASE 54 U/L (12-78); ALBUMIN/GLOBULIN RATIO 0.8 (1.1-1.5); ALKALINE PHOSPHATASE 103 IU/L (46-116); ANION GAP 7 (8-16); ASPARTATE AMINO TRANSFERASE 56 U/L (10-37); BILIRUBIN,TOTAL 0.2 MG/DL (0.1-1.0); BLOOD UREA NITROGEN 14 MG/DL (7-18); BUN/CREATININE RATIO 15.4 (6.6-38.0); CALCIUM 8.8 MG/DL (8.5-10.1); CHLORIDE 105 MMOL/L (99-107); CREATININE 0.91 MG/DL (0.40-0.90); GLUCOSE 238 MG/DL (70-104); POTASSIUM 4.2 MMOL/L (3.5-5.1); SODIUM 139 MMOL/L (135-145); TOTAL CARBON DIOXIDE 27.4 MMOL/L (24-32); TOTAL PROTEIN 6.8 G/DL (6.4-8.2); eGFR 62 ML/MIN
[2019-04-18 14:20] LABS: ETHANOL < 0.010 GM/DL (0.0-0.010)
[2019-04-18 14:25] LABS: URINE AMPHETAMINE SCREEN NEGATIVE (Neg); URINE BARBITUATE SCREEN NEGATIVE (Neg); URINE BENZODIAZEPINES SCREEN NEGATIVE (Neg); URINE CANNABINOID SCREEN POSITIVE (Neg); URINE COCAINE SCREEN NEGATIVE (Neg); URINE METHADONE SCREEN NEGATIVE (Neg); URINE OPIATE SCREEN NEGATIVE (Neg); URINE PHENCYCLIDINE SCREEN NEGATIVE (Neg)
[2019-04-18 14:30] LABS: CLARITY,URINE CLEAR (Clear); COLOR,URINE YELLOW (Yellow); GLUCOSE, URINE NEGATIVE (Neg); KETONES,URINE NEGATIVE (Neg); LEUKOCYTE ESTERASE ,URINE NEGATIVE (Neg); NITRITES, URINE NEGATIVE (Neg); OCCULT BLOOD,URINE NEGATIVE (Neg); PH,URINE 6.5 (4.8-8.0); PROTEIN,URINE NEGATIVE (Neg); UROBILINOGEN,URINE 0.2 E.U/dL (0.2-1.0)
[2019-04-18 14:36] LABS: UA COLLECTION TYPE STRAIGHT CATH
[2019-04-18] MEDS ORDERED: normal saline 1000ml 1,000 ML IV SCH (15:23)
[2019-04-18] MEDS ORDERED: mag hydrox/Alum hydrox/simeth 30ml oral suspension PO PRN (15:25)
[2019-04-18] MEDS ORDERED: ondansetron/PF 4mg/2ml inj IV PRN (15:25)
[2019-04-18] MEDS ORDERED: magnesium hydroxide 30ml (MOM) UD suspension PO PRN (15:25)
[2019-04-18] MEDS ORDERED: morphine 2 MG/ML inj. syringe IV PRN ×2 (15:25)
[2019-04-18] MEDS ORDERED: acetaminophen 325mg tablet PO PRN (15:25)
[2019-04-18] MEDS ORDERED: ATEN50TA PO (15:35)
[2019-04-18] MEDS ORDERED: ASPI-1265 PO (15:35)
[2019-04-18] MEDS ORDERED: B CO1TAB7 PO (15:36)
[2019-04-18] MEDS ORDERED: DOCU100C41 PO (15:37)
[2019-04-18] MEDS ORDERED: CHOL400T14 PO (15:37)
[2019-04-18] MEDS ORDERED: CHLO500T3 PO (15:37)
[2019-04-18] MEDS ORDERED: ESTR1TAB19 PO (15:38)
[2019-04-18] MEDS ORDERED: DIGO250T77 PO (15:38)
[2019-04-18] MEDS ORDERED: HYDR-3686 PO (15:40)
[2019-04-18] MEDS ORDERED: HYDR25TA4 PO (15:40)
[2019-04-18] MEDS ORDERED: LORA10TA7 PO (15:41)
[2019-04-18] MEDS ORDERED: LIPA1CAP18 PO (15:42)
[2019-04-18] MEDS ORDERED: OMEP20CA11 PO (15:43)
[2019-04-18] MEDS ORDERED: CALC-212 PO (15:44)
[2019-04-18] MEDS ORDERED: MONT10TA21 PO (15:44)
[2019-04-18] MEDS ORDERED: DESV50TA PO (15:45)
[2019-04-18] MEDS ORDERED: PRAZ5CAP PO (15:46)
[2019-04-18] MEDS ORDERED: PRAZ2CAP2 PO (15:46)
[2019-04-18] MEDS ORDERED: LEVO137T2 PO (15:51)
[2019-04-18] MEDS ORDERED: SUCR1TAB PO (15:52)
[2019-04-18] MEDS ORDERED: ROPI0.5T PO (15:52)
[2019-04-18] MEDS ORDERED: GABA-532 PO (15:53)
[2019-04-18] MEDS ORDERED: MULT1TAB74 PO (15:54)
[2019-04-18 17:23] LABS: HEMOGLOBIN A1C 8.6 % (4.5-6.2)
[2019-04-18 17:24] LABS: CHOL/HDL RATIO 4.4 (0.00-4.99); CHOLESTEROL 160 MG/DL (0-200); HDL CHOLESTEROL 36 MG/DL (35-60); LDL CHOLESTEROL 107 MG/DL (50-100); TRIGLYCERIDES 133 MG/DL (20-135)
[2019-04-18 19:00] VITALS: BP_SYST 132; BP_SYST 140; BP_SYST 152; BP_DIAS 71; BP_DIAS 82
[2019-04-18] MEDS ORDERED: furosemide 20 MG/2 ML vial IV ONE (19:25)
[2019-04-18 19:41] LABS: ABG BASE EXCESS -0.5 mmol/L (-2.0-3.0); ABG HCO3 24.5 mmol/L (22.0-26.0); ABG OXYGEN SATURATION 89.2 % (95-98); ABG PH (T) 7.393 (7.350-7.450); ABG PO2 (T) 52.8 mmHg (83-108); ALLEN'S TEST Positive; FCOHb 2.6 % (0.5-1.5); FMetHb 0.3 % (0.3-1.12); FO2Hb 86.6 % (94-100); PATIENT TEMPERATURE 36.7; RESPIRATORY RATE (OBSERVED) 18 b/min
[2019-04-18] MEDS: estradiol 1mg tablet PO SCH ×2 (21:00→22:40)
[2019-04-18] MEDS: gabapentin 300mg capsule PO SCH (21:17)
[2019-04-18] MEDS: atenolol 50mg tablet PO SCH (21:18)
[2019-04-18] MEDS: ROPINIRole 0.25mg tablet PO SCH (21:18)
[2019-04-18] MEDS: docusate sod 100mg capsule PO SCH (21:18)
[2019-04-18] MEDS: digoxin 250mcg (0.25mg) tablet PO SCH (21:19)
[2019-04-18] MEDS: sucralfate 1 gm tablet PO SCH (21:19)
[2019-04-18] MEDS: venlafaxine 25mg tablet PO SCH (21:19)
[2019-04-18] MEDS: prazosin 1mg capsule PO SCH (21:20)
[2019-04-18] MEDS: prazosin 5mg capsule PO SCH (21:20)
[2019-04-18] MEDS ORDERED: glucagon, human recombinant 1mg kit SUBCUT PRN (21:25)
[2019-04-18] MEDS ORDERED: dextrose ORAL solution 15 GM/59 ML bottle PO PRN ×2 (21:25)
[2019-04-18] MEDS ORDERED: MESSAGE TO PHARMACY PO ONE (21:25)
[2019-04-18] MEDS ORDERED: dextrose 50%-water 50ml dispensing syringe IV PRN ×2 (21:25)
[2019-04-18] MEDS: insulin glargine (Lantus) pen - multi-dose SQ SCH (22:41)
[2019-04-19] VITALS: BP 110/53
[2019-04-19] MEDS ORDERED: cyclobenzaprine 10mg tablet PO PRN
[2019-04-19] MEDS ORDERED: ipratropium/albuterol 3ml nebule NEB PRN
[2019-04-19 05:31] LABS: BASOPHILS # (AUTO) 0.1 X10'3 (0-0.2); BASOPHILS % (AUTO) 0.6 % (0-1); EOSINOPHILS # (AUTO) 0.3 X10'3 (0-0.9); HEMATOCRIT 40.1 % (35.0-45.0); HEMOGLOBIN 13.6 g/dl (12.0-16.0); LYMPHOCYTES # (AUTO) 3.3 X10'3 (1.1-4.8); LYMPHOCYTES % (AUTO) 31.7 % (21-51); MEAN CORPUSCULAR HEMOGLOBIN 29.2 PG (27.0-31.0); MEAN CORPUSCULAR HGB CONC 33.8 g/dL (33.0-36.5); MEAN CORPUSCULAR VOLUME 86.4 FL (78-98); MEAN PLATELET VOLUME 8.4 FL (7.4-10.4); MONOCYTES # (AUTO) 0.9 X10'3 (0-0.9); MONOCYTES % (AUTO) 9.1 % (2-12); NEUTROPHILS # (AUTO) 5.7 X10'3 (1.8-7.7); NEUTROPHILS % (AUTO) 55.6 % (42-75); PLATELET COUNT 202 X10'3 (140-440); RED BLOOD COUNT 4.64 X10'6 (4.20-5.60); RED CELL DISTRIBUTION WIDTH 13.7 % (11.5-14.5); WHITE BLOOD COUNT 10.3 X10'3 (4.5-11.0)
[2019-04-19 06:04] LABS: ALBUMIN 2.9 G/DL (3.4-5.0); ANION GAP 10 (8-16); BLOOD UREA NITROGEN 15 MG/DL (7-18); BUN/CREATININE RATIO 15.3 (6.6-38.0); CALCIUM 8.5 MG/DL (8.5-10.1); CHLORIDE 105 MMOL/L (99-107); CHOL/HDL RATIO 4.6 (0.00-4.99); CHOLESTEROL 151 MG/DL (0-200); CREATININE 0.98 MG/DL (0.40-0.90); GLUCOSE 151 MG/DL (70-104); HDL CHOLESTEROL 33 MG/DL (35-60); LDL CHOLESTEROL 102 MG/DL (50-100); SODIUM 141 MMOL/L (135-145); TOTAL CARBON DIOXIDE 26.2 MMOL/L (24-32); TRIGLYCERIDES 168 MG/DL (20-135); eGFR 57 ML/MIN
--- NOTE | 2019-04-19 06:35 | NUR ---
Patient in room [facility]. I have received report from MARK Luna and had the opportunity to ask questions and assume patient care.
[2019-04-19 07:12] VITALS: BP 114/45
[2019-04-19] MEDS: levoTHYROXINE 25mcg tablet PO SCH (07:52)
[2019-04-19] MEDS: levoTHYROXINE 112mcg tablet PO SCH (07:52)
[2019-04-19] MEDS: sucralfate 1 gm tablet PO SCH ×4 (07:52→20:41)
[2019-04-19] MEDS: venlafaxine 25mg tablet PO SCH ×3 (07:53→20:47)
[2019-04-19] MEDS: HYDROchlorothiazide 25mg tablet PO SCH (07:53)
[2019-04-19] MEDS: pantoprazole 40mg Tablet.DR PO SCH (07:53)
[2019-04-19] MEDS: docusate sod 100mg capsule PO SCH ×2 (07:53→20:42)
[2019-04-19] MEDS: gabapentin 300mg capsule PO SCH ×3 (07:54→20:40)
[2019-04-19] MEDS: LIPASE/PROTEASE/AMYLASE 4,200 unit CAPSULE.DR PO SCH ×3 (07:58→17:12)
[2019-04-19] MEDS: cholecalciferol (vitamin D) 400 unit tablet PO SCH (07:59)
[2019-04-19] MEDS: multivitamins, therapeutics tablet PO SCH (07:59)
[2019-04-19] MEDS ORDERED: aspirin 81mg tab.chew PO SCH (08:00)
[2019-04-19] MEDS ORDERED: furosemide 20 MG/2 ML vial IV ONE (09:30)
[2019-04-19] MEDS: aspirin 325mg tablet, delayed-release (Ecotrin) PO SCH (09:45)
[2019-04-19 11:00] VITALS: BP 138/84
--- NOTE | 2019-04-19 15:34 | NUR ---
DM consult: Pt with A1c 8.6 seen at bedside. Pt states she doesn't see an manufacturing team member or any MD for DM management however per H pt has an MD appointment this June. Pt states she does take her DM meds per rx and she doesn't usually check her BG levels unless she is feeling symptoms of hypo/hyperglycemia. Pt states she doesn't specifically follow a DM diet however she monitors her CHO intake and limites sweets. Pt provided with written and verbal DM ed with referral to outpatient DM class and RD contact information. All of patient's questions were answered at this time. Pt admit with SOB, acute on chronic hypoxemic respiratory failure, and suspected cor pulmonale. Pt reports low appetite however reports no wt loss and still able to eat. Pt currently on a CHO controlled diet with documented average of 75% PO intake. Pt denies any food allergies however reports difficulty swallowing at times, pt agreeable to BSS, ST consulted. Pt denies any constipation or diarrhea, LB 04/18. Will continue to follow. Recommendations: 1) Continue with CHO controlled diet 2) Monitor need for ONS 3) Wt per rx Addendum: 04/19/19 at [address] Amended: Links added.
[2019-04-19] MEDS ORDERED: iohexol 350MG/ML 100ml bottle IV ONE (15:50)
[2019-04-19] MEDS: MESSAGE TO NURSING PO NR (16:44)
--- NOTE | 2019-04-19 18:25 | NUR ---
Problems reprioritized. Patient report given, questions answered & plan of care reviewed with MARK Gimenez.
--- NOTE | 2019-04-19 18:30 | NUR ---
Patient in room [facility]. I have received report from Sofya FLORES and had the opportunity to ask questions and assume patient care.
[2019-04-19 20:12] VITALS: BP 138/73
[2019-04-19] MEDS: prazosin 1mg capsule PO SCH (20:40)
[2019-04-19] MEDS: atenolol 50mg tablet PO SCH (20:41)
[2019-04-19] MEDS: prazosin 5mg capsule PO SCH (20:41)
[2019-04-19] MEDS: digoxin 250mcg (0.25mg) tablet PO SCH (20:41)
[2019-04-19] MEDS: ROPINIRole 0.25mg tablet PO SCH (20:41)
[2019-04-19] MEDS: furosemide 20 MG/2 ML vial IV SCH (20:43)
[2019-04-19] MEDS: estradiol 1mg tablet PO SCH (21:14)
[2019-04-19] MEDS: insulin glargine (Lantus) pen - multi-dose SQ SCH (21:20)
[2019-04-20] VITALS: BP 136/82
[2019-04-20 05:41] LABS: ALBUMIN 3.1 G/DL (3.4-5.0); ANION GAP 10 (8-16); BLOOD UREA NITROGEN 17 MG/DL (7-18); BUN/CREATININE RATIO 17.2 (6.6-38.0); CALCIUM 8.5 MG/DL (8.5-10.1); CHLORIDE 101 MMOL/L (99-107); CREATININE 0.99 MG/DL (0.40-0.90); GLUCOSE 169 MG/DL (70-104); POTASSIUM 3.3 MMOL/L (3.5-5.1); SODIUM 138 MMOL/L (135-145); eGFR 56 ML/MIN
[2019-04-20 05:51] LABS: BASOPHILS # (AUTO) 0.1 X10'3 (0-0.2); BASOPHILS % (AUTO) 0.7 % (0-1); EOSINOPHILS # (AUTO) 0.3 X10'3 (0-0.9); EOSINOPHILS % (AUTO) 2.9 % (0-6); HEMATOCRIT 41.4 % (35.0-45.0); HEMOGLOBIN 14.1 g/dl (12.0-16.0); LYMPHOCYTES # (AUTO) 4.6 X10'3 (1.1-4.8); LYMPHOCYTES % (AUTO) 38.8 % (21-51); MEAN CORPUSCULAR HEMOGLOBIN 29.2 PG (27.0-31.0); MEAN CORPUSCULAR HGB CONC 34.1 g/dL (33.0-36.5); MEAN CORPUSCULAR VOLUME 85.6 FL (78-98); MEAN PLATELET VOLUME 8.5 FL (7.4-10.4); MONOCYTES # (AUTO) 1.2 X10'3 (0-0.9); MONOCYTES % (AUTO) 10.3 % (2-12); NEUTROPHILS # (AUTO) 5.6 X10'3 (1.8-7.7); NEUTROPHILS % (AUTO) 47.3 % (42-75); PLATELET COUNT 214 X10'3 (140-440); RED BLOOD COUNT 4.83 X10'6 (4.20-5.60); RED CELL DISTRIBUTION WIDTH 14.1 % (11.5-14.5); WHITE BLOOD COUNT 11.9 X10'3 (4.5-11.0)
--- NOTE | 2019-04-20 06:24 | NUR ---
Problems reprioritized. Patient report given, questions answered & plan of care reviewed with Samreen FLORES.
[2019-04-20 07:00] VITALS: BP 158/48
[2019-04-20] MEDS: sucralfate 1 gm tablet PO SCH ×4 (07:00→20:13)
[2019-04-20] MEDS: HYDROchlorothiazide 25mg tablet PO SCH (09:16)
[2019-04-20] MEDS: docusate sod 100mg capsule PO SCH ×2 (09:16→20:12)
[2019-04-20] MEDS: gabapentin 300mg capsule PO SCH ×3 (09:16→20:12)
[2019-04-20] MEDS: aspirin 325mg tablet, delayed-release (Ecotrin) PO SCH (09:16)
[2019-04-20] MEDS: multivitamins, therapeutics tablet PO SCH (09:16)
[2019-04-20] MEDS: venlafaxine 25mg tablet PO SCH ×3 (09:16→20:12)
[2019-04-20] MEDS: cholecalciferol (vitamin D) 400 unit tablet PO SCH (09:16)
[2019-04-20] MEDS: LIPASE/PROTEASE/AMYLASE 4,200 unit CAPSULE.DR PO SCH ×3 (09:17→17:14)
[2019-04-20] MEDS: furosemide 20 MG/2 ML vial IV SCH ×3 (09:18→20:49)
[2019-04-20] MEDS: levoTHYROXINE 25mcg tablet PO SCH (09:26)
[2019-04-20] MEDS: pantoprazole 40mg Tablet.DR PO SCH (09:27)
[2019-04-20] MEDS: levoTHYROXINE 112mcg tablet PO SCH (09:51)
[2019-04-20] MEDS: insulin Lispro (HumaLOG) vial - multi-dose SQ SCH ×3 (09:56→18:39)
[2019-04-20] MEDS: MESSAGE TO NURSING PO NR (10:43)
[2019-04-20 12:00] VITALS: BP 143/78
[2019-04-20 12:05] VITALS: BP 133/64
[2019-04-20] MEDS ORDERED: potassium Cl 20 mEq SR tablet PO PRN (12:05)
[2019-04-20] MEDS ORDERED: potassium CL 10mEq/100ml bag 100 ML IV PRN (12:05)
[2019-04-20] MEDS: potassium Cl 20 mEq SR tablet PO SCH ×2 (12:52→13:02)
[2019-04-20] MEDS: potassium Cl 20 mEq SR tablet PO PRN ×3 (12:53→22:16)
[2019-04-20 14:40] VITALS: BP 112/50
[2019-04-20 18:00] VITALS: BP 125/55
--- NOTE | 2019-04-20 18:30 | NUR ---
Patient in room [facility]. I have received report from Bianca FLORES and had the opportunity to ask questions and assume patient care.
--- NOTE | 2019-04-20 18:39 | NUR ---
Gave report to Pernell FLORES.
[2019-04-20] MEDS: prazosin 1mg capsule PO SCH (20:12)
[2019-04-20] MEDS: estradiol 1mg tablet PO SCH (20:12)
[2019-04-20] MEDS: ROPINIRole 0.25mg tablet PO SCH (20:12)
[2019-04-20] MEDS: prazosin 5mg capsule PO SCH (20:12)
[2019-04-20] MEDS: atenolol 50mg tablet PO SCH (20:13)
[2019-04-20] MEDS: digoxin 250mcg (0.25mg) tablet PO SCH (20:13)
[2019-04-20] MEDS: insulin glargine (Lantus) pen - multi-dose SQ SCH (20:57)
[2019-04-21] VITALS: BP 105/38
[2019-04-21 06:11] LABS: BASOPHILS # (AUTO) 0.1 X10'3 (0-0.2); BASOPHILS % (AUTO) 0.6 % (0-1); EOSINOPHILS # (AUTO) 0.3 X10'3 (0-0.9); EOSINOPHILS % (AUTO) 2.4 % (0-6); HEMATOCRIT 41.4 % (35.0-45.0); HEMOGLOBIN 14.3 g/dl (12.0-16.0); LYMPHOCYTES # (AUTO) 3.9 X10'3 (1.1-4.8); LYMPHOCYTES % (AUTO) 35.4 % (21-51); MEAN CORPUSCULAR HEMOGLOBIN 29.4 PG (27.0-31.0); MEAN CORPUSCULAR HGB CONC 34.5 g/dL (33.0-36.5); MEAN CORPUSCULAR VOLUME 85.2 FL (78-98); MEAN PLATELET VOLUME 8.8 FL (7.4-10.4); MONOCYTES # (AUTO) 1.1 X10'3 (0-0.9); MONOCYTES % (AUTO) 10.3 % (2-12); NEUTROPHILS # (AUTO) 5.7 X10'3 (1.8-7.7); NEUTROPHILS % (AUTO) 51.3 % (42-75); PLATELET COUNT 217 X10'3 (140-440); RED BLOOD COUNT 4.87 X10'6 (4.20-5.60); RED CELL DISTRIBUTION WIDTH 13.8 % (11.5-14.5); WHITE BLOOD COUNT 11.1 X10'3 (4.5-11.0)
[2019-04-21 06:16] LABS: ALBUMIN 3.2 G/DL (3.4-5.0); ANION GAP 11 (8-16); BLOOD UREA NITROGEN 21 MG/DL (7-18); BUN/CREATININE RATIO 20.4 (6.6-38.0); CALCIUM 8.5 MG/DL (8.5-10.1); CHLORIDE 100 MMOL/L (99-107); CREATININE 1.03 MG/DL (0.40-0.90); GLUCOSE 169 MG/DL (70-104); SODIUM 138 MMOL/L (135-145); TOTAL CARBON DIOXIDE 27.4 MMOL/L (24-32); eGFR 54 ML/MIN
--- NOTE | 2019-04-21 06:32 | NUR ---
Problems reprioritized. Patient report given, questions answered & plan of care reviewed with Samreen FLORES.
[2019-04-21 07:00] VITALS: BP 106/37
[2019-04-21] MEDS: sucralfate 1 gm tablet PO SCH ×2 (07:00→11:20)
--- NOTE | 2019-04-21 07:25 | NUR ---
MD Machado called surgical floor for another patient. made aware of this pt. critical potassium level. Oked to administer potassium and follow replacement per order. N/O for mag lab. Will cont. to monitor pt.
[2019-04-21] MEDS: insulin Lispro (HumaLOG) vial - multi-dose SQ SCH (08:39)
[2019-04-21 08:41] LABS: MAGNESIUM 1.6 MG/DL (1.5-2.4)
[2019-04-21] MEDS: potassium Cl 20 mEq SR tablet PO SCH (08:42)
[2019-04-21] MEDS: LIPASE/PROTEASE/AMYLASE 4,200 unit CAPSULE.DR PO SCH (08:42)
[2019-04-21] MEDS: HYDROchlorothiazide 25mg tablet PO SCH (08:43)
[2019-04-21] MEDS: multivitamins, therapeutics tablet PO SCH (08:43)
[2019-04-21] MEDS: gabapentin 300mg capsule PO SCH (08:43)
[2019-04-21] MEDS: cholecalciferol (vitamin D) 400 unit tablet PO SCH (08:44)
[2019-04-21] MEDS: venlafaxine 25mg tablet PO SCH (08:44)
[2019-04-21] MEDS: docusate sod 100mg capsule PO SCH (08:44)
[2019-04-21] MEDS: levoTHYROXINE 112mcg tablet PO SCH (08:44)
[2019-04-21] MEDS: aspirin 325mg tablet, delayed-release (Ecotrin) PO SCH (08:44)
[2019-04-21] MEDS: pantoprazole 40mg Tablet.DR PO SCH (08:44)
[2019-04-21] MEDS: levoTHYROXINE 25mcg tablet PO SCH (08:45)
[2019-04-21] MEDS: furosemide 20 MG/2 ML vial IV SCH (08:45)
[2019-04-21] MEDS: MESSAGE TO NURSING PO NR (08:46)
[2019-04-21 08:54] VITALS: BP 132/45
[2019-04-21] MEDS ORDERED: FURO-150 PO (10:10)
[2019-04-21] MEDS ORDERED: POTA10TA15 PO (10:10)
[2019-04-21 11:00] VITALS: BP 120/61
--- NOTE | 2019-04-21 11:57 | NUR ---
CALLED DISCHARGE PRESCRIPTIONS IN TO [facility].
--- NOTE | 2019-04-21 12:30 | NUR ---
Pt. left in a stable condition. Friend with pt. to give her a ride home. Reviewed discharge paperwork with pt. She is aware to cook pickled meat her prescriptions of potassium and Lasix at [facility]. She is aware to continue her home medications as usual but to discont. hydrochlorothiazide. She is aware that she will need to cont. her home diabetic management as she will no longer be on hospital protocol insulin. BG was checked, below 200, not treated r/t the fact this nurse cannot assess effects. Pt. given education on SOB and ALOC. IV DC'd and pressure bandage applied without tape. Pt. aware to make an appointment with her php within a week and ask for a referral for a sleep study. Also discussed possible referral to remote control assembler. Pt. is aware of her potassium level and a potassium high diet was discussed. Pt. had vape pen in charge nurse drawer, it was returned to her before she left. All other belongings taken with pt. Pt. escorted to her friend's vehicle by a hospital staff member in a w/c.
== END 2019-04-21 12:25 | disposition home or self-care (01) | DRG 189 ==
LOC: ER 12:21 → EDBEDREQTM 15:53 → SUR 3N 16:15 → OBSVTOIN 16:15 → CMPBEDREQ 19:39
PROVIDERS: ADMIT Internal Medicine; ATTEND Internal Medicine
PROC: B32T1ZZ Computerized Tomography (CT Scan) of Left Pulmonary Artery using Low Osmolar Contrast (ICD-10-PCS; principal; 2019-04-19)
PROC: B3201ZZ Computerized Tomography (CT Scan) of Thoracic Aorta using Low Osmolar Contrast (ICD-10-PCS; 2019-04-19)
PROC: B32S1ZZ Computerized Tomography (CT Scan) of Right Pulmonary Artery using Low Osmolar Contrast (ICD-10-PCS; 2019-04-19)
DX: J96.21 Acute and chronic respiratory failure with hypoxia (principal); E03.9 Hypothyroidism, unspecified; E11.42 Type 2 diabetes mellitus with diabetic polyneuropathy; I10 Essential (primary) hypertension; I27.81 Cor pulmonale (chronic); E66.9 Obesity, unspecified; E87.6 Hypokalemia; F32.9 Major depressive disorder, single episode, unspecified; F41.9 Anxiety disorder, unspecified; G47.00 Insomnia, unspecified; Z60.2 Problems related to living alone; G89.29 Other chronic pain; M19.90 Unspecified osteoarthritis, unspecified site; M54.9 Dorsalgia, unspecified; F17.210 Nicotine dependence, cigarettes, uncomplicated; I48.91 Unspecified atrial fibrillation; J44.9 Chronic obstructive pulmonary disease, unspecified; K21.9 Gastro-esophageal reflux disease without esophagitis; M79.7 Fibromyalgia; Z79.82 Long term (current) use of aspirin; I25.2 Old myocardial infarction; Z79.899 Other long term (current) drug therapy; Z68.35 Body mass index [BMI] 35.0-35.9, adult; Z85.820 Personal history of malignant melanoma of skin; Z90.710 Acquired absence of both cervix and uterus; Z88.1 Allergy status to other antibiotic agents; Z88.8 Allergy status to other drugs, medicaments and biological substances; Z91.048 Other nonmedicinal substance allergy status
CPT/HCPCS: 36415; 36600; 70450; 71046; 71275; 80048; 80053; 80061; 80305; 80320; 81003; 82140; 82803; 82948; 83036; 83735; 83880; 84443; 84484; 85018; 85025; 85379; 85610; 85651; 87070; 92508; 92616; 93005; 93306; 94667; 94668; 94760; 96360; 97110; 97116; 97162; 97530; 99285; G0378; J1815; J1940; J7030; Q9967

== ENCOUNTER 2019-07-19 08:48 | Emergency (ER) | payer MEDICARE, MEDICAID ==
[~2019-07-19] VITALS: Ht 172.7 cm; Wt 100.9 kg
[~2019-07-19 08:48] MED LIST changes: +ASPI-1265 PO; -ASPI-611 PO; -ATE25T PO; +ATEN50TA PO; +B CO1TAB7 PO; -BUSP5TAB3 PO; -CALC-157; +CALC-212 PO; +CHOL400T14 PO; -DIGO250T PO; +DIGO250T77 PO; -DOCU-28 PO; +DOCU100C41 PO; +FURO-150 PO; +GABA-532 PO; -HYDR-2561 PO; +HYDR-3686 PO; -HYDR12.522 PO; +LEVO137T2 PO; +MULT1TAB74 PO; -MV W1TAB4 PO; -NYSPWD TP; +OMEP20CA11 PO; -OMEP20TA5 PO; +ONDA4TAB6 PO; +POTA10TA15 PO; +PRAZ5CAP PO; -PRED20TA PO; +ROPI0.5T PO; -ROPI1TAB4 PO; -SUCR1ORA PO; +SUCR1TAB PO; -SYN0.088T PO; -VITA-268 PO; -vitamin d PO
[2019-07-19 09:14] LABS: BASOPHILS # (AUTO) 0.1 X10'3 (0-0.2); BASOPHILS % (AUTO) 0.6 % (0-1); EOSINOPHILS # (AUTO) 0.4 X10'3 (0-0.9); EOSINOPHILS % (AUTO) 2.8 % (0-6); HEMATOCRIT 42.8 % (35.0-45.0); HEMOGLOBIN 14.3 g/dl (12.0-16.0); LYMPHOCYTES # (AUTO) 4.4 X10'3 (1.1-4.8); LYMPHOCYTES % (AUTO) 33.1 % (21-51); MEAN CORPUSCULAR HEMOGLOBIN 30.2 PG (27.0-31.0); MEAN CORPUSCULAR HGB CONC 33.4 g/dL (33.0-36.5); MEAN CORPUSCULAR VOLUME 90.4 FL (78-98); MEAN PLATELET VOLUME 8.5 FL (7.4-10.4); MONOCYTES % (AUTO) 7.3 % (2-12); NEUTROPHILS # (AUTO) 7.5 X10'3 (1.8-7.7); NEUTROPHILS % (AUTO) 56.2 % (42-75); PLATELET COUNT 222 X10'3 (140-440); RED BLOOD COUNT 4.73 X10'6 (4.20-5.60); RED CELL DISTRIBUTION WIDTH 14.5 % (11.5-14.5); WHITE BLOOD COUNT 13.4 X10'3 (4.5-11.0)
[2019-07-19 09:28] LABS: ALANINE AMINOTRANSFERASE 24 U/L (12-78); ALBUMIN 3.1 G/DL (3.4-5.0); ALBUMIN/GLOBULIN RATIO 0.8 (1.1-1.5); ALKALINE PHOSPHATASE 97 IU/L (46-116); ANION GAP 11 (8-16); ASPARTATE AMINO TRANSFERASE 16 U/L (10-37); BILIRUBIN,TOTAL 0.3 MG/DL (0.1-1.0); BLOOD UREA NITROGEN 11 MG/DL (7-18); BUN/CREATININE RATIO 11.5 (6.6-38.0); CALCIUM 8.6 MG/DL (8.5-10.1); CHLORIDE 105 MMOL/L (99-107); CREATININE 0.96 MG/DL (0.40-0.90); GLUCOSE 188 MG/DL (70-104); POTASSIUM 3.5 MMOL/L (3.5-5.1); SODIUM 140 MMOL/L (135-145); TOTAL CARBON DIOXIDE 23.9 MMOL/L (24-32); TOTAL PROTEIN 7.2 G/DL (6.4-8.2); eGFR 58 ML/MIN
[2019-07-19] MEDS ORDERED: normal saline 1000ML IV soln IVB ONE (09:30)
[2019-07-19 09:33] LABS: CLARITY,URINE SLIGHTLY CLOUDY (Clear); COLOR,URINE YELLOW (Yellow); GLUCOSE, URINE NEGATIVE (Neg); KETONES,URINE NEGATIVE (Neg); LEUKOCYTE ESTERASE ,URINE NEGATIVE (Neg); NITRITES, URINE NEGATIVE (Neg); OCCULT BLOOD,URINE NEGATIVE (Neg); PROTEIN,URINE NEGATIVE (Neg); UROBILINOGEN,URINE 0.2 E.U/dL (0.2-1.0)
[2019-07-19 09:34] LABS: URINE HCG NEGATIVE (NEG)
[2019-07-19 09:36] LABS: UA COLLECTION TYPE CLN CATCH MIDSTREAM
[2019-07-19 09:42] LABS: SQUAMOUS EPITHELIAL CELL,UR MANY /LPF (FEW); YEAST MODERATE /HPF (NEGATIVE)
[2019-07-19 09:43] LABS: BACTERIA,URINE FEW /HPF (Neg); RBC,URINE 0-2 /HPF (0-2); WBC,URINE 0-4 /HPF (0-4)
[2019-07-19] MEDS: morphine 2 MG/ML inj. syringe IV PRN ×2 (09:43→10:06)
--- NOTE | 2019-07-19 10:05 | NUR ---
ASSESSMENT CONSULTANT AT BEDSIDE, ASKED TO WAIT UNTIL I GIVE THE PATIEN HER MORPHINE, AND ASSESSMENT CONSULTANT LEFT
[2019-07-19 10:09] LABS: LIPASE 88 U/L (73-393); MAGNESIUM 1.3 MG/DL (1.5-2.4)
--- NOTE | 2019-07-19 10:34 | NUR ---
DISCUSSED MAG 1.3 WITH MALU NAJERA, ORDERS RECEIVED
[2019-07-19] MEDS ORDERED: magnesium 2GM in 50ml NS 50 ML IV ONE (10:35)
--- NOTE | 2019-07-19 10:35 | NUR ---
to ct scan
[2019-07-19 11:08] VITALS: BP 130/67
== END 2019-07-19 11:47 | disposition home or self-care (01) ==
LOC: ER 08:48
DX: R10.30 Lower abdominal pain, unspecified (principal); R19.7 Diarrhea, unspecified; I48.91 Unspecified atrial fibrillation; E78.00 Pure hypercholesterolemia, unspecified; I10 Essential (primary) hypertension; I25.2 Old myocardial infarction; J44.9 Chronic obstructive pulmonary disease, unspecified; K21.9 Gastro-esophageal reflux disease without esophagitis; E11.9 Type 2 diabetes mellitus without complications; M19.90 Unspecified osteoarthritis, unspecified site; G89.29 Other chronic pain; F41.9 Anxiety disorder, unspecified; F32.9 Major depressive disorder, single episode, unspecified; F17.200 Nicotine dependence, unspecified, uncomplicated; Z90.710 Acquired absence of both cervix and uterus; Z98.890 Other specified postprocedural states; Z88.1 Allergy status to other antibiotic agents; Z88.8 Allergy status to other drugs, medicaments and biological substances; Z79.82 Long term (current) use of aspirin; Z79.899 Other long term (current) drug therapy
CPT/HCPCS: 36415; 74176; 80053; 81001; 81025; 83690; 83735; 85025; 85610; 96361; 96365; 96375; 99284; J2270; J3475; J7030; 96376

== ENCOUNTER 2019-10-06 09:26 | Emergency (ER) | payer MEDICARE, MEDICAID ==
[~2019-10-06] VITALS: Ht 172.7 cm; Wt 109.1 kg
[2019-10-06] MEDS ORDERED: ipratropium/albuterol 3ml nebule NEB ONE (10:25)
[2019-10-06] MEDS ORDERED: PRED20TA PO (11:57)
[2019-10-06] MEDS ORDERED: AZIT250T83 PO (11:57)
[2019-10-06 12:13] VITALS: BP 141/86
== END 2019-10-06 12:15 | disposition home or self-care (01) ==
LOC: ER 09:27
DX: S92.514A Nondisplaced fracture of proximal phalanx of right lesser toe(s), initial encounter for closed fracture (principal); J44.1 Chronic obstructive pulmonary disease with (acute) exacerbation; I48.91 Unspecified atrial fibrillation; E78.00 Pure hypercholesterolemia, unspecified; I10 Essential (primary) hypertension; I25.2 Old myocardial infarction; K21.9 Gastro-esophageal reflux disease without esophagitis; E03.9 Hypothyroidism, unspecified; M19.90 Unspecified osteoarthritis, unspecified site; G89.29 Other chronic pain; M79.7 Fibromyalgia; F41.9 Anxiety disorder, unspecified; F32.9 Major depressive disorder, single episode, unspecified; E11.40 Type 2 diabetes mellitus with diabetic neuropathy, unspecified; F10.99 Alcohol use, unspecified with unspecified alcohol-induced disorder; Z90.710 Acquired absence of both cervix and uterus; Z98.890 Other specified postprocedural states; Z60.2 Problems related to living alone; Z88.1 Allergy status to other antibiotic agents; Z88.8 Allergy status to other drugs, medicaments and biological substances; Z79.899 Other long term (current) drug therapy; W22.8XXA Striking against or struck by other objects, initial encounter; Y93.89 Activity, other specified; Y92.89 Other specified places as the place of occurrence of the external cause; Y99.8 Other external cause status; Y90.9 Presence of alcohol in blood, level not specified
CPT/HCPCS: 71045; 73630; 82948; 94640; 94760; 99283; 99284

== ENCOUNTER 2020-03-18 09:13 | Emergency (ER) | payer MEDICARE, MEDICAID ==
[~2020-03-18] VITALS: Ht 172.7 cm; Wt 100.0 kg
[~2020-03-18 09:13] MED LIST changes: +DIGO250T2 PO; -DIGO250T77 PO; -OMEP20CA11 PO; +OMEP20CA15 PO
[2020-03-18] MEDS ORDERED: normal saline 1000ML IV soln IVB ONE (09:45)
[2020-03-18] MEDS ORDERED: ondansetron/PF 4mg/2ml inj IV ONE (09:45)
[2020-03-18] MEDS ORDERED: morphine 4 MG/ML inj SYRINge IV PRN (09:45)
--- NOTE | 2020-03-18 10:12 | NUR ---
Patient to CT at this time.
[2020-03-18 10:14] LABS: BASOPHILS # (AUTO) 0.1 X10'3 (0-0.2); BASOPHILS % (AUTO) 0.8 % (0-1); EOSINOPHILS # (AUTO) 0.2 X10'3 (0-0.9); EOSINOPHILS % (AUTO) 2.1 % (0-6); HEMATOCRIT 43.8 % (35.0-45.0); HEMOGLOBIN 14.8 g/dl (12.0-16.0); LYMPHOCYTES # (AUTO) 3.4 X10'3 (1.1-4.8); LYMPHOCYTES % (AUTO) 28.5 % (21-51); MEAN CORPUSCULAR HEMOGLOBIN 31.5 PG (27.0-31.0); MEAN CORPUSCULAR HGB CONC 33.8 g/dL (33.0-36.5); MEAN CORPUSCULAR VOLUME 93.3 FL (78-98); MEAN PLATELET VOLUME 8.7 FL (7.4-10.4); MONOCYTES # (AUTO) 0.8 X10'3 (0-0.9); MONOCYTES % (AUTO) 6.8 % (2-12); NEUTROPHILS # (AUTO) 7.3 X10'3 (1.8-7.7); NEUTROPHILS % (AUTO) 61.8 % (42-75); PLATELET COUNT 201 X10'3 (140-440); RED BLOOD COUNT 4.69 X10'6 (4.20-5.60); RED CELL DISTRIBUTION WIDTH 13.6 % (11.5-14.5); WHITE BLOOD COUNT 11.8 X10'3 (4.5-11.0)
--- NOTE | 2020-03-18 10:21 | NUR ---
Patient back from CT at this time.
[2020-03-18 10:27] LABS: ALANINE AMINOTRANSFERASE 30 U/L (12-78); ALBUMIN 3.3 G/DL (3.4-5.0); ALBUMIN/GLOBULIN RATIO 0.9 (1.1-1.5); ALKALINE PHOSPHATASE 89 IU/L (46-116); ANION GAP 12 (8-16); ASPARTATE AMINO TRANSFERASE 31 U/L (10-37); BILIRUBIN,TOTAL 0.3 MG/DL (0.1-1.0); BLOOD UREA NITROGEN 13 MG/DL (7-18); CALCIUM 8.6 MG/DL (8.5-10.1); CHLORIDE 105 MMOL/L (99-107); GLUCOSE 174 MG/DL (70-104); LIPASE 102 U/L (73-393); POTASSIUM 3.7 MMOL/L (3.5-5.1); SODIUM 140 MMOL/L (135-145); TOTAL CARBON DIOXIDE 23.2 MMOL/L (24-32); TOTAL PROTEIN 7.1 G/DL (6.4-8.2); eGFR 55 ML/MIN
[2020-03-18 11:14] LABS: CLARITY,URINE CLEAR (Clear); COLOR,URINE YELLOW (Yellow); GLUCOSE, URINE NEGATIVE (Neg); KETONES,URINE NEGATIVE (Neg); LEUKOCYTE ESTERASE ,URINE NEGATIVE (Neg); NITRITES, URINE NEGATIVE (Neg); OCCULT BLOOD,URINE NEGATIVE (Neg); PROTEIN,URINE NEGATIVE (Neg); UROBILINOGEN,URINE 0.2 E.U/dL (0.2-1.0)
[2020-03-18 11:18] LABS: UA COLLECTION TYPE CLN CATCH MIDSTREAM
[2020-03-18 11:42] VITALS: BP 168/100
== END 2020-03-18 11:44 | disposition home or self-care (01) ==
LOC: ER 09:14
DX: R10.84 Generalized abdominal pain (principal); K59.01 Slow transit constipation; E78.00 Pure hypercholesterolemia, unspecified; I10 Essential (primary) hypertension; I25.2 Old myocardial infarction; I48.91 Unspecified atrial fibrillation; J44.9 Chronic obstructive pulmonary disease, unspecified; K21.9 Gastro-esophageal reflux disease without esophagitis; E11.9 Type 2 diabetes mellitus without complications; E03.9 Hypothyroidism, unspecified; M19.90 Unspecified osteoarthritis, unspecified site; G89.29 Other chronic pain; F41.9 Anxiety disorder, unspecified; F32.9 Major depressive disorder, single episode, unspecified; Z90.710 Acquired absence of both cervix and uterus; Z98.890 Other specified postprocedural states; Z72.89 Other problems related to lifestyle; Z60.2 Problems related to living alone; Z88.1 Allergy status to other antibiotic agents; Z88.8 Allergy status to other drugs, medicaments and biological substances; Z79.82 Long term (current) use of aspirin; Z79.899 Other long term (current) drug therapy
CPT/HCPCS: 36415; 74176; 80053; 81003; 83690; 85025; 96374; 96375; 99284; J2270; J2405; J7030

== ENCOUNTER 2021-10-07 09:36 | Emergency (ER) | payer MEDICARE, MEDICAID ==
[~2021-10-07] VITALS: Ht 167.6 cm; Wt 100.0 kg
[~2021-10-07 09:36] MED LIST changes: +BENZ200C53 PO; -CHLO500T3 PO; -ESTR1TAB19 PO; -FURO-150 PO; +GLIM1TAB6 PO; -HYDR-3686 PO; +HYDR12.55 PO; +LISI2.5T14 PO; -LORA10TA7 PO; +MULT-620 PO; -MULT1TAB74 PO; -ONDA4TAB6 PO; -POTA10TA15 PO; +QUET25TA36 PO; +SIMV10TA98 PO; -SUCR1TAB PO; +UMEC62.5 INH
[2021-10-07] MEDS ORDERED: normal saline 1000ML IV soln IV ONE (10:00)
[2021-10-07 10:34] LABS: BASOPHILS # (AUTO) 0.1 X10'3 (0-0.2); BASOPHILS % (AUTO) 0.6 % (0-1); EOSINOPHILS # (AUTO) 0.1 X10'3 (0-0.9); EOSINOPHILS % (AUTO) 1.4 % (0-6); HEMOGLOBIN 15.1 g/dl (12.0-16.0); LYMPHOCYTES # (AUTO) 2.5 X10'3 (1.1-4.8); LYMPHOCYTES % (AUTO) 25.4 % (21-51); MEAN CORPUSCULAR HEMOGLOBIN 31.9 PG (27.0-31.0); MEAN CORPUSCULAR HGB CONC 35.2 g/dL (33.0-36.5); MEAN CORPUSCULAR VOLUME 90.7 FL (78-98); MEAN PLATELET VOLUME 8.3 FL (7.4-10.4); MONOCYTES # (AUTO) 0.7 X10'3 (0-0.9); MONOCYTES % (AUTO) 6.7 % (2-12); NEUTROPHILS # (AUTO) 6.6 X10'3 (1.8-7.7); NEUTROPHILS % (AUTO) 65.9 % (42-75); PLATELET COUNT 229 X10'3 (140-440); RED BLOOD COUNT 4.74 X10'6 (4.20-5.60); RED CELL DISTRIBUTION WIDTH 13.6 % (11.5-14.5)
[2021-10-07 10:44] LABS: ALANINE AMINOTRANSFERASE 22 U/L (12-78); ALBUMIN 3.4 G/DL (3.4-5.0); ALBUMIN/GLOBULIN RATIO 0.8 (1.1-1.5); ALKALINE PHOSPHATASE 97 IU/L (46-116); ANION GAP 13 (8-16); ASPARTATE AMINO TRANSFERASE 20 U/L (10-37); BILIRUBIN,TOTAL 0.3 MG/DL (0.1-1.0); BLOOD UREA NITROGEN 14 MG/DL (7-18); BUN/CREATININE RATIO 12.4 (6.6-38.0); CALCIUM 8.9 MG/DL (8.5-10.1); CHLORIDE 102 MMOL/L (99-107); CREATININE 1.13 MG/DL (0.40-0.90); GLUCOSE 166 MG/DL (70-104); SODIUM 137 MMOL/L (135-145); TOTAL CARBON DIOXIDE 21.7 MMOL/L (24-32); TOTAL PROTEIN 7.5 G/DL (6.4-8.2); eGFR 48 ML/MIN
[2021-10-07] MEDS ORDERED: morphine 4 MG/ML inj SYRINge IV ONE (12:20)
[2021-10-07] MEDS ORDERED: HYDROcodone/acetaminophen 5mg/325mg tablet PO ONE (12:20)
[2021-10-07] MEDS ORDERED: ondansetron/PF 4mg/2ml inj IV ONE (12:20)
[2021-10-07] MEDS ORDERED: metroNIDAZOLE 500mg tablet PO ONE (12:20)
[2021-10-07] MEDS ORDERED: ciprofloxacin/D5W 200mg/100mL 100 ML IV ONE (12:20)
[2021-10-07] MEDS ORDERED: CIPR-202 PO (12:27)
[2021-10-07] MEDS ORDERED: METR-159 PO (12:27)
[2021-10-07] MEDS ORDERED: LOPE2CAP PO (12:27)
[2021-10-07 13:51] VITALS: BP 132/55
== END 2021-10-07 13:54 | disposition home or self-care (01) ==
LOC: ER 09:36
DX: K52.9 Noninfective gastroenteritis and colitis, unspecified (principal); K62.5 Hemorrhage of anus and rectum; R11.0 Nausea; R10.84 Generalized abdominal pain; G89.29 Other chronic pain; I10 Essential (primary) hypertension; I48.91 Unspecified atrial fibrillation; E78.00 Pure hypercholesterolemia, unspecified; I25.2 Old myocardial infarction; J44.9 Chronic obstructive pulmonary disease, unspecified; K21.9 Gastro-esophageal reflux disease without esophagitis; E11.9 Type 2 diabetes mellitus without complications; E03.9 Hypothyroidism, unspecified; M19.90 Unspecified osteoarthritis, unspecified site; F41.9 Anxiety disorder, unspecified; F32.9 Major depressive disorder, single episode, unspecified; Z90.710 Acquired absence of both cervix and uterus; Z98.890 Other specified postprocedural states; Z72.89 Other problems related to lifestyle; Z60.2 Problems related to living alone; Z88.1 Allergy status to other antibiotic agents; Z88.8 Allergy status to other drugs, medicaments and biological substances; Z79.82 Long term (current) use of aspirin; Z79.2 Long term (current) use of antibiotics; Z79.899 Other long term (current) drug therapy
CPT/HCPCS: 36415; 71045; 74176; 80053; 85025; 85610; 86885; 86900; 86901; 93005; 96361; 96365; 96375; 99285; J0744; J2270; J2405; J7030

== ENCOUNTER 2022-03-21 14:58 | Emergency (ER) | payer MEDICARE, MEDICAID ==
[~2022-03-21] VITALS: Ht 172.7 cm; Wt 104.5 kg
[~2022-03-21 14:58] MED LIST changes: +LOPE2CAP PO
[2022-03-21 15:03] VITALS: BP 122/65
[2022-03-21] MEDS ORDERED: oxyCODONE/APAP 5-325mg tablet PO ONE (17:20)
[2022-03-21] MEDS ORDERED: orphenadrine citrate 60mg/2ml inj. IM ONE (17:20)
[2022-03-21] MEDS ORDERED: ketorolac tromethamine 15mg/ml inj. IM ONE (17:20)
--- NOTE | 2022-03-21 17:50 | NUR ---
im x2 given po med given
[2022-03-21] MEDS ORDERED: ORPH100T2 PO (18:45)
== END 2022-03-21 18:45 | disposition home or self-care (01) ==
LOC: ER 14:58
DX: M54.2 Cervicalgia (principal); M62.830 Muscle spasm of back; I48.91 Unspecified atrial fibrillation; E78.00 Pure hypercholesterolemia, unspecified; I10 Essential (primary) hypertension; I25.2 Old myocardial infarction; J44.9 Chronic obstructive pulmonary disease, unspecified; K21.9 Gastro-esophageal reflux disease without esophagitis; E11.9 Type 2 diabetes mellitus without complications; M19.90 Unspecified osteoarthritis, unspecified site; G89.29 Other chronic pain; F41.9 Anxiety disorder, unspecified; F32.A Depression, unspecified; Z90.710 Acquired absence of both cervix and uterus; Z98.890 Other specified postprocedural states; Z72.89 Other problems related to lifestyle; Z60.2 Problems related to living alone; Z88.1 Allergy status to other antibiotic agents; Z88.8 Allergy status to other drugs, medicaments and biological substances; Z79.82 Long term (current) use of aspirin; Z79.899 Other long term (current) drug therapy
CPT/HCPCS: 96372; 99284; J1885; J2360

== ENCOUNTER 2022-10-26 11:22 | Emergency (ER) | payer MEDICARE, MEDICAID ==
[~2022-10-26] VITALS: Ht 172.7 cm; Wt 95.5 kg
[~2022-10-26 11:22] MED LIST changes: +ORPH100T2 PO
[2022-10-26 11:30] VITALS: BP 108/75
--- NOTE | 2022-10-26 11:43 | NUR ---
SPOKE TO ANGELIA MURO, JUST WANTS COVID TEST AND XRAY
[2022-10-26] MEDS ORDERED: dexamethasone sod phosphate 10mg/ml inj IM STA (12:05)
[2022-10-26] MEDS ORDERED: ipratropium/albuterol 3ml nebule NEB ONE (12:05)
[2022-10-26] MEDS ORDERED: PRED10TA23 PO (13:03)
[2022-10-26] MEDS ORDERED: BUDE10.2 INH (13:03)
[2022-10-26] MEDS ORDERED: ALBU6.7H14 INH (13:03)
[2022-10-26] MEDS ORDERED: AMOX-117 PO (13:03)
== END 2022-10-26 14:20 | disposition home or self-care (01) ==
LOC: ER 11:23
DX: J40 Bronchitis, not specified as acute or chronic (principal); Z20.822 Contact with and (suspected) exposure to COVID-19; J44.1 Chronic obstructive pulmonary disease with (acute) exacerbation; R06.02 Shortness of breath; I48.91 Unspecified atrial fibrillation; E78.00 Pure hypercholesterolemia, unspecified; I10 Essential (primary) hypertension; I25.2 Old myocardial infarction; K21.9 Gastro-esophageal reflux disease without esophagitis; E11.9 Type 2 diabetes mellitus without complications; M19.90 Unspecified osteoarthritis, unspecified site; G89.29 Other chronic pain; F41.9 Anxiety disorder, unspecified; F32.A Depression, unspecified; Z90.710 Acquired absence of both cervix and uterus; Z98.890 Other specified postprocedural states; Z72.89 Other problems related to lifestyle; Z60.2 Problems related to living alone; Z88.1 Allergy status to other antibiotic agents; Z88.8 Allergy status to other drugs, medicaments and biological substances; Z79.82 Long term (current) use of aspirin; Z79.2 Long term (current) use of antibiotics; Z79.899 Other long term (current) drug therapy
CPT/HCPCS: 71045; 87635; 94640; 96372; 99284; C9803; J1100; 94760

== ENCOUNTER 2023-02-21 10:14 | Emergency (ER) | payer MEDICARE, MEDICAID ==
[~2023-02-21] VITALS: Ht 172.7 cm; Wt 91.8 kg
[~2023-02-21 10:14] MED LIST changes: +ALBU6.7H14 INH; +BUDE10.2 INH; +MONT-47 PO; -MONT10TA21 PO; -ORPH100T2 PO; +ORPH100T4 PO
[2023-02-21 10:18] VITALS: BP 142/64
--- NOTE | 2023-02-21 11:41 | NUR ---
ekg [id number]
[2023-02-21] MEDS ORDERED: valacyclovir 500mg tablet PO ONE ×2 (13:10→13:15)
[2023-02-21] MEDS ORDERED: PREG50CA PO (13:15)
[2023-02-21] MEDS ORDERED: ACYC5CRE2 TOP (13:15)
[2023-02-21] MEDS ORDERED: VALA100031 PO (13:15)
[2023-02-21] MEDS ORDERED: CLOT15CR73 TOP (13:15)
== END 2023-02-21 14:30 | disposition home or self-care (01) ==
LOC: ER 10:15
DX: M54.50 Low back pain, unspecified (principal); B02.9 Zoster without complications; E78.00 Pure hypercholesterolemia, unspecified; I10 Essential (primary) hypertension; I25.2 Old myocardial infarction; J44.9 Chronic obstructive pulmonary disease, unspecified; K21.9 Gastro-esophageal reflux disease without esophagitis; E11.9 Type 2 diabetes mellitus without complications; E03.9 Hypothyroidism, unspecified; G89.29 Other chronic pain; M79.7 Fibromyalgia; F41.9 Anxiety disorder, unspecified; F32.9 Major depressive disorder, single episode, unspecified; Z90.710 Acquired absence of both cervix and uterus; Z98.890 Other specified postprocedural states; Z60.2 Problems related to living alone; Z88.1 Allergy status to other antibiotic agents; Z88.8 Allergy status to other drugs, medicaments and biological substances; Z79.82 Long term (current) use of aspirin; Z79.899 Other long term (current) drug therapy
CPT/HCPCS: 93005; 99283

== ENCOUNTER 2023-06-18 07:12 | Emergency (ER) | payer MEDICARE, MEDICAID ==
[~2023-06-18] VITALS: Ht 172.7 cm; Wt 91.5 kg
[~2023-06-18 07:12] MED LIST changes: +ACYC5CRE2 TOP; +CLOT15CR73 TOP; +PREG50CA PO; +VALA100031 PO
[2023-06-18 07:19] VITALS: TEMP 98.2
[2023-06-18] MEDS ORDERED: pantoprazole 40mg IV 80 MG in normal saline 100ml IV soln 100 ML IV ONE (07:40)
[2023-06-18 08:27] LABS: BASOPHILS # (AUTO) 0.1 X10'3 (0-0.2); BASOPHILS % (AUTO) 0.6 % (0-1); EOSINOPHILS % (AUTO) 0.3 % (0-6); HEMATOCRIT 49.4 % (35.0-45.0); HEMOGLOBIN 16.9 g/dl (12.0-16.0); LYMPHOCYTES % (AUTO) 12.8 % (21-51); MEAN CORPUSCULAR HEMOGLOBIN 31.6 PG (27.0-31.0); MEAN CORPUSCULAR HGB CONC 34.2 g/dL (33.0-36.5); MEAN CORPUSCULAR VOLUME 92.6 FL (78-98); MONOCYTES # (AUTO) 0.9 X10'3 (0-0.9); MONOCYTES % (AUTO) 5.9 % (2-12); NEUTROPHILS # (AUTO) 12.5 X10'3 (1.8-7.7); NEUTROPHILS % (AUTO) 80.4 % (42-75); PLATELET COUNT 239 X10'3 (140-440); RED BLOOD COUNT 5.34 X10'6 (4.20-5.60); RED CELL DISTRIBUTION WIDTH 13.9 % (11.5-14.5); WHITE BLOOD COUNT 15.6 X10'3 (4.5-11.0)
[2023-06-18 08:39] LABS: APTT 29 SECONDS (22-32)
[2023-06-18 08:43] LABS: ALANINE AMINOTRANSFERASE 24 U/L (12-78); ALBUMIN 3.6 G/DL (3.4-5.0); ALBUMIN/GLOBULIN RATIO 0.9 (1.1-1.5); ALKALINE PHOSPHATASE 90 IU/L (46-116); ANION GAP 14 (8-16); ASPARTATE AMINO TRANSFERASE 19 U/L (10-37); BILIRUBIN,TOTAL 0.5 MG/DL (0.1-1.0); BLOOD UREA NITROGEN 9 MG/DL (7-18); BUN/CREATININE RATIO 8.1 (10.0-20.0); CALCIUM 9.6 MG/DL (8.5-10.1); CHLORIDE 100 MMOL/L (99-107); CREATININE 1.11 MG/DL (0.40-0.90); GLUCOSE 169 MG/DL (70-104); POTASSIUM 3.7 MMOL/L (3.5-5.1); SODIUM 136 MMOL/L (135-145); TOTAL CARBON DIOXIDE 21.8 MMOL/L (24-32); TOTAL PROTEIN 7.4 G/DL (6.4-8.2); eCRCL 47 ML/MIN; eGFR 48 ML/MIN
[2023-06-18 08:44] LABS: DIGOXIN 0.9 NG/ML (0.9-1.9); ETHANOL < 10 MG/DL (<10); LIPASE 50 U/L (73-393); MAGNESIUM 1.6 MG/DL (1.5-2.4)
[2023-06-18 09:09] LABS: PROTHROMBIN TIME 10.5 SECONDS (9.0-12.0)
[2023-06-18 09:51] VITALS: BP 147/75; PULSE 73; RESP 16; O2SAT 97
[2023-06-18] MEDS ORDERED: PANT-47 PO (10:01)
== END 2023-06-18 10:35 | disposition home or self-care (01) ==
LOC: ER 07:12
DX: R10.9 Unspecified abdominal pain (principal); E78.00 Pure hypercholesterolemia, unspecified; I10 Essential (primary) hypertension; J44.9 Chronic obstructive pulmonary disease, unspecified; K21.9 Gastro-esophageal reflux disease without esophagitis; E11.9 Type 2 diabetes mellitus without complications; E03.9 Hypothyroidism, unspecified; Z88.1 Allergy status to other antibiotic agents; Z88.8 Allergy status to other drugs, medicaments and biological substances; Z79.82 Long term (current) use of aspirin; Z79.899 Other long term (current) drug therapy; Z90.710 Acquired absence of both cervix and uterus
CPT/HCPCS: 36415; 80053; 80162; 80320; 83690; 83735; 85025; 85610; 85730; 86885; 86900; 86901; 93005; 96365; 99284; C9113; J3490

== ENCOUNTER 2024-09-04 11:02 | Inpatient (IN) | payer MEDICARE, MEDICAID ==
[~2024-09-04] VITALS: Ht 172.7 cm; Wt 73.0 kg
[~2024-09-04 11:02] MED LIST changes: -ACYC5CRE2 TOP; -ATEN50TA PO; -CLOT15CR73 TOP; -DESV50TA PO; -GLIM1TAB6 PO; -LOPE2CAP PO; -ORPH100T4 PO; -PRAZ2CAP2 PO; -PRAZ5CAP PO; -UMEC62.5 INH; -VALA100031 PO
[2024-09-04 11:39] LABS: BASOPHILS # (AUTO) 0.1 X10'3 (0-0.2); BASOPHILS % (AUTO) 0.5 % (0-1); EOSINOPHILS # (AUTO) 0.2 X10'3 (0-0.9); EOSINOPHILS % (AUTO) 2.2 % (0-6); HEMATOCRIT 38.2 % (35.0-45.0); HEMOGLOBIN 12.4 g/dl (12.0-16.0); LYMPHOCYTES # (AUTO) 2.9 X10'3 (1.1-4.8); LYMPHOCYTES % (AUTO) 27.6 % (21-51); MEAN CORPUSCULAR HEMOGLOBIN 28.3 PG (27.0-31.0); MEAN CORPUSCULAR HGB CONC 32.6 g/dL (33.0-36.5); MEAN CORPUSCULAR VOLUME 86.9 FL (78-98); MEAN PLATELET VOLUME 7.4 FL (7.4-10.4); MONOCYTES # (AUTO) 0.9 X10'3 (0-0.9); MONOCYTES % (AUTO) 8.3 % (2-12); NEUTROPHILS # (AUTO) 6.5 X10'3 (1.8-7.7); NEUTROPHILS % (AUTO) 61.4 % (42-75); PLATELET COUNT 293 X10'3 (140-440); RED BLOOD COUNT 4.39 X10'6 (4.20-5.60); RED CELL DISTRIBUTION WIDTH 14.8 % (11.5-14.5); WHITE BLOOD COUNT 10.6 X10'3 (4.5-11.0)
[2024-09-04 11:51] LABS: ALANINE AMINOTRANSFERASE 14 U/L (12-78); ALBUMIN 3.3 G/DL (3.4-5.0); ALBUMIN/GLOBULIN RATIO 0.8 (1.1-1.5); ALKALINE PHOSPHATASE 88 IU/L (46-116); ANION GAP 11 (8-16); ASPARTATE AMINO TRANSFERASE 11 U/L (10-37); BILIRUBIN,TOTAL 0.4 MG/DL (0.1-1.0); BLOOD UREA NITROGEN 10 MG/DL (7-18); BUN/CREATININE RATIO 12.8 (10.0-20.0); CALCIUM 9.4 MG/DL (8.5-10.1); CHLORIDE 98 MMOL/L (99-107); CREATININE 0.78 MG/DL (0.40-0.90); GLUCOSE 106 MG/DL (70-104); POTASSIUM 3.8 MMOL/L (3.5-5.1); SODIUM 132 MMOL/L (135-145); TOTAL CARBON DIOXIDE 23.5 MMOL/L (24-32); TOTAL PROTEIN 7.5 G/DL (6.4-8.2); eCRCL 66 ML/MIN; eGFR 73 ML/MIN
[2024-09-04 11:54] LABS: PRO BRAIN NATRIURETIC PEPTIDE 110 PG/ML (0-125)
[2024-09-04 12:09] LABS: D-DIMER 5.92 MG/L FEU (0-0.50)
[2024-09-04] MEDS: HYDROcodone/acetaminophen 10/325mg tab PO ONE (12:24)
[2024-09-04 13:10] LABS: BILIRUBIN,DIRECT 0.1 MG/DL (0-0.3)
[2024-09-04] MEDS ORDERED: iohexol 350MG/ML 100ml bottle IV ONE (14:09)
[2024-09-04] MEDS: HYDROcodone/acetaminophen 5mg/325mg tablet PO ONE (17:40)
[2024-09-04] MEDS ORDERED: LAN0.125T PO (17:51)
[2024-09-04] MEDS ORDERED: ESTR1TAB28 PO (17:51)
[2024-09-04] MEDS ORDERED: GABA-1405 PO (17:51)
[2024-09-04] MEDS ORDERED: DESV100T16 PO (17:51)
[2024-09-04] MEDS ORDERED: OMEP20CA16 PO (17:51)
[2024-09-04] MEDS ORDERED: SIMV-45 PO (17:51)
[2024-09-04] MEDS ORDERED: LISI10TA27 PO (17:51)
[2024-09-04] MEDS ORDERED: ATEN50TA8 PO (17:51)
[2024-09-04] MEDS ORDERED: PRAZ5CAP2 PO (17:51)
[2024-09-04] MEDS ORDERED: HYDROcodone/acetaminophen 5mg/325mg tablet PO PRN (18:15)
[2024-09-04] MEDS ORDERED: potassium Cl 40MEQ/1/2NS 520ml 520 ML IV PRN (18:15)
[2024-09-04] MEDS ORDERED: ondansetron/PF 4mg/2ml inj IV PRN (18:15)
[2024-09-04] MEDS ORDERED: magnesium sulf-water 2g/50mL 50 ML IV PRN (18:15)
[2024-09-04] MEDS ORDERED: potassium Cl 20 mEq SR tablet PO PRN (18:15)
[2024-09-04] MEDS ORDERED: acetaminophen 325mg tablet PO PRN ×2 (18:15)
[2024-09-04] MEDS ORDERED: magnesium Cl slow-release 64mg tablet PO PRN (18:15)
[2024-09-04] MEDS ORDERED: mag hydrox/Alum hydrox/simeth 30ml oral suspension PO PRN (18:15)
[2024-09-04] MEDS ORDERED: morphine 2 MG/ML inj. syringe IV PRN (18:15)
[2024-09-04] MEDS ORDERED: magnesium sulf-water 4G/100mL 100 ML IV PRN (18:15)
[2024-09-04 19:11] LABS: HEMOGLOBIN A1C 5.2 % (4.5-6.2)
[2024-09-04] MEDS ORDERED: albuterol 2.5 MG/3 ML nebule NEB PRN (19:15)
[2024-09-04 19:23] LABS: DIGOXIN 0.8 NG/ML (0.9-1.9); THYROID STIMULATING HORMONE 5.8 ulU/ml (0.34-4.50)
[2024-09-04 19:35] LABS: PROTHROMBIN TIME 10.4 SECONDS (9.0-12.0)
[2024-09-04 20:00] LABS: BILIRUBIN,URINE NEGATIVE (Neg); CLARITY,URINE CLOUDY (Clear); COLOR,URINE YELLOW (Yellow); GLUCOSE, URINE NEGATIVE (Neg); KETONES,URINE NEGATIVE (Neg); LEUKOCYTE ESTERASE ,URINE NEGATIVE (Neg); NITRITES, URINE NEGATIVE (Neg); OCCULT BLOOD,URINE NEGATIVE (Neg); PH,URINE 6.5 (4.8-8.0); PROTEIN,URINE >=300 mg/dl (Neg); UROBILINOGEN,URINE 0.2 E.U/dL (0.2-1.0)
[2024-09-04] MEDS ORDERED: budesonide 0.5mg/2ml UD nebule IH PRN (20:00)
[2024-09-04 20:15] LABS: URINE AMPHETAMINE SCREEN NEGATIVE (Neg); URINE BARBITUATE SCREEN NEGATIVE (Neg); URINE BENZODIAZEPINES SCREEN NEGATIVE (Neg); URINE CANNABINOID SCREEN NEGATIVE (Neg); URINE COCAINE SCREEN NEGATIVE (Neg); URINE METHADONE SCREEN NEGATIVE (Neg); URINE OPIATE SCREEN POSITIVE (Neg); URINE PHENCYCLIDINE SCREEN NEGATIVE (Neg)
[2024-09-04] MEDS: K and/or MAG REPLACEMENT MC SCH (20:21)
[2024-09-04 20:35] LABS: UA COLLECTION TYPE OTHER
[2024-09-04 20:38] LABS: BACTERIA,URINE 2+ /HPF (Neg); SQUAMOUS EPITHELIAL CELL,UR MANY /LPF (FEW)
[2024-09-04 20:39] LABS: WBC,URINE 0-4 /HPF (0-4); YEAST FEW /HPF (NEGATIVE)
[2024-09-04 20:40] LABS: RBC,URINE NONE SEEN /HPF (0-2)
[2024-09-04] MEDS: simvastatin 20mg tablet PO SCH (21:04)
[2024-09-04] MEDS: gabapentin 300mg capsule PO SCH (21:04)
[2024-09-04] MEDS: docusate sod 100mg capsule PO SCH (21:04)
[2024-09-04] MEDS: normal saline 1000ml 1,000 ML IV SCH (21:07)
[2024-09-04 22:18] VITALS: PULSE 85; RESP 16; O2SAT 95
[2024-09-05] VITALS (8 sets, daily range): BP systolic 132–149; BP diastolic 51–68; PULSE 57–84; RESP 16–23; TEMP 98.1–98.3; O2SAT 95–98
[2024-09-05 07:33] LABS: PROTHROMBIN TIME 10.8 SECONDS (9.0-12.0)
[2024-09-05 07:37] LABS: ALANINE AMINOTRANSFERASE 18 U/L (12-78); ALBUMIN 3.3 G/DL (3.4-5.0); ALBUMIN/GLOBULIN RATIO 0.8 (1.1-1.5); ALKALINE PHOSPHATASE 78 IU/L (46-116); ANION GAP 12 (8-16); ASPARTATE AMINO TRANSFERASE 12 U/L (10-37); BASOPHILS % (AUTO) 0.5 % (0-1); BILIRUBIN,TOTAL 0.4 MG/DL (0.1-1.0); BLOOD UREA NITROGEN 8 MG/DL (7-18); BUN/CREATININE RATIO 12.5 (10.0-20.0); CHLORIDE 99 MMOL/L (99-107); CHOL/HDL RATIO 2.4 (0.00-4.99); CHOLESTEROL 142 MG/DL (0-200); CREATININE 0.64 MG/DL (0.40-0.90); EOSINOPHILS # (AUTO) 0.3 X10'3 (0-0.9); EOSINOPHILS % (AUTO) 3.2 % (0-6); GLUCOSE 85 MG/DL (70-104); HDL CHOLESTEROL 59 MG/DL (35-60); HEMATOCRIT 33.9 % (35.0-45.0); HEMOGLOBIN 11.3 g/dl (12.0-16.0); LDL CHOLESTEROL 68 MG/DL (50-100); LYMPHOCYTES # (AUTO) 2.7 X10'3 (1.1-4.8); LYMPHOCYTES % (AUTO) 27.8 % (21-51); MAGNESIUM 1.7 MG/DL (1.5-2.4); MEAN CORPUSCULAR HEMOGLOBIN 28.5 PG (27.0-31.0); MEAN CORPUSCULAR HGB CONC 33.2 g/dL (33.0-36.5); MEAN CORPUSCULAR VOLUME 85.8 FL (78-98); MEAN PLATELET VOLUME 7.6 FL (7.4-10.4); MONOCYTES # (AUTO) 0.9 X10'3 (0-0.9); MONOCYTES % (AUTO) 9.5 % (2-12); NEUTROPHILS # (AUTO) 5.8 X10'3 (1.8-7.7); PHOSPHORUS 3.3 MG/DL (2.3-4.5); PLATELET COUNT 279 X10'3 (140-440); POTASSIUM 3.3 MMOL/L (3.5-5.1); RED BLOOD COUNT 3.95 X10'6 (4.20-5.60); RED CELL DISTRIBUTION WIDTH 14.8 % (11.5-14.5); SODIUM 133 MMOL/L (135-145); TOTAL CARBON DIOXIDE 22.5 MMOL/L (24-32); TOTAL PROTEIN 7.2 G/DL (6.4-8.2); TRIGLYCERIDES 128 MG/DL (20-135); WHITE BLOOD COUNT 9.8 X10'3 (4.5-11.0); eCRCL 80 ML/MIN; eGFR > 90 ML/MIN
[2024-09-05] MEDS: LIPASE/PROTEASE/AMYLASE 4,200 unit CAPSULE.DR PO SCH (08:37)
[2024-09-05] MEDS: potassium Cl 20 mEq SR tablet PO PRN (08:48)
[2024-09-05] MEDS: levoTHYROXINE 25mcg tablet PO SCH (08:49)
[2024-09-05] MEDS: levoTHYROXINE 112mcg tablet PO SCH (08:49)
[2024-09-05] MEDS: pantoprazole 40mg Tablet.DR PO SCH (08:52)
[2024-09-05] MEDS: LIPASE/PROTEASE/AMYLASE 10,500 units CAPSULE.DR PO SCH (08:53)
[2024-09-05] MEDS: HYDROcodone/acetaminophen 10/325mg tab PO PRN (13:22)
[2024-09-05] MEDS ORDERED: albuterol 2.5 MG/3 ML nebule NEB SCH (18:39)
[2024-09-05] MEDS ORDERED: albuterol 2.5 MG/3 ML nebule NEB PRN (18:40)
[2024-09-05] MEDS ORDERED: non-formulary drug (Albuterol Sulfate (Proventil Hfa) 2 PUFFS) INH SCH (20:00)
[2024-09-06] VITALS (9 sets, daily range): BP systolic 122–148; BP diastolic 47–72; PULSE 52–86; RESP 12–22; TEMP 97.4–98.1; O2SAT 95–98
[2024-09-06] MEDS: DESVENLAFAXINE SUCCINATE 100 MG PO SCH (08:00)
[2024-09-06 08:10] LABS: BASOPHILS % (AUTO) 0.3 % (0-1); EOSINOPHILS # (AUTO) 0.3 X10'3 (0-0.9); EOSINOPHILS % (AUTO) 3.3 % (0-6); HEMATOCRIT 33.9 % (35.0-45.0); HEMOGLOBIN 11.5 g/dl (12.0-16.0); LYMPHOCYTES # (AUTO) 2.3 X10'3 (1.1-4.8); LYMPHOCYTES % (AUTO) 28.4 % (21-51); MEAN CORPUSCULAR HGB CONC 33.9 g/dL (33.0-36.5); MEAN CORPUSCULAR VOLUME 85.4 FL (78-98); MEAN PLATELET VOLUME 7.4 FL (7.4-10.4); MONOCYTES # (AUTO) 0.8 X10'3 (0-0.9); NEUTROPHILS # (AUTO) 4.6 X10'3 (1.8-7.7); PLATELET COUNT 262 X10'3 (140-440); RED BLOOD COUNT 3.97 X10'6 (4.20-5.60); RED CELL DISTRIBUTION WIDTH 14.6 % (11.5-14.5)
[2024-09-06] MEDS: multivitamins, therapeutics tablet PO SCH (08:12)
[2024-09-06] MEDS: lisinopril 10 MG tablet PO SCH (08:13)
[2024-09-06 08:18] LABS: PROTHROMBIN TIME 10.9 SECONDS (9.0-12.0)
[2024-09-06 08:20] LABS: ALANINE AMINOTRANSFERASE 13 U/L (12-78); ALBUMIN 3.1 G/DL (3.4-5.0); ALBUMIN/GLOBULIN RATIO 0.8 (1.1-1.5); ALKALINE PHOSPHATASE 72 IU/L (46-116); ANION GAP 8 (8-16); ASPARTATE AMINO TRANSFERASE 21 U/L (10-37); BILIRUBIN,TOTAL 0.4 MG/DL (0.1-1.0); BLOOD UREA NITROGEN 6 MG/DL (7-18); BUN/CREATININE RATIO 9.1 (10.0-20.0); CALCIUM 8.9 MG/DL (8.5-10.1); CHLORIDE 103 MMOL/L (99-107); CREATININE 0.66 MG/DL (0.40-0.90); GLUCOSE 99 MG/DL (70-104); MAGNESIUM 1.8 MG/DL (1.5-2.4); POTASSIUM 3.5 MMOL/L (3.5-5.1); SODIUM 133 MMOL/L (135-145); TOTAL CARBON DIOXIDE 22.1 MMOL/L (24-32); TOTAL PROTEIN 6.8 G/DL (6.4-8.2); eCRCL 78 ML/MIN; eGFR 88 ML/MIN
[2024-09-06] MEDS: vitamin B comp w/Vit. C tab 1 TAB TABLET PO SCH (13:35)
[2024-09-06] MEDS: FLU VACC TS2024-25(6MOS UP)/PF 45 MCG/0.5 ML SYRINGE IMVAC ONE (13:39)
[2024-09-06] MEDS: pneumococcal 23-VAL P-sac vacc 25 mcg/0.5ml vial IMVAC ONE (13:45)
[2024-09-07] VITALS (8 sets, daily range): BP systolic 119–163; BP diastolic 45–64; PULSE 67–93; RESP 14–19; TEMP 97.5–97.8; O2SAT 94–96
[2024-09-07] MEDS: temazepam 15mg capsule PO ONE ×2 (00:30→20:51)
[2024-09-07 07:40] LABS: BASOPHILS % (AUTO) 0.5 % (0-1); EOSINOPHILS # (AUTO) 0.4 X10'3 (0-0.9); EOSINOPHILS % (AUTO) 3.9 % (0-6); HEMATOCRIT 34.9 % (35.0-45.0); HEMOGLOBIN 11.5 g/dl (12.0-16.0); LYMPHOCYTES # (AUTO) 2.9 X10'3 (1.1-4.8); LYMPHOCYTES % (AUTO) 31.6 % (21-51); MEAN CORPUSCULAR HEMOGLOBIN 28.4 PG (27.0-31.0); MEAN CORPUSCULAR HGB CONC 33.1 g/dL (33.0-36.5); MEAN CORPUSCULAR VOLUME 85.8 FL (78-98); MEAN PLATELET VOLUME 7.4 FL (7.4-10.4); MONOCYTES # (AUTO) 0.9 X10'3 (0-0.9); MONOCYTES % (AUTO) 9.8 % (2-12); NEUTROPHILS % (AUTO) 54.2 % (42-75); PLATELET COUNT 281 X10'3 (140-440); RED BLOOD COUNT 4.07 X10'6 (4.20-5.60); RED CELL DISTRIBUTION WIDTH 14.6 % (11.5-14.5); WHITE BLOOD COUNT 9.3 X10'3 (4.5-11.0)
[2024-09-07 07:43] LABS: PROTHROMBIN TIME 10.9 SECONDS (9.0-12.0)
[2024-09-07 07:48] LABS: ALANINE AMINOTRANSFERASE 15 U/L (12-78); ALBUMIN 3.1 G/DL (3.4-5.0); ALBUMIN/GLOBULIN RATIO 0.8 (1.1-1.5); ALKALINE PHOSPHATASE 70 IU/L (46-116); ANION GAP 8 (8-16); ASPARTATE AMINO TRANSFERASE 20 U/L (10-37); BILIRUBIN,TOTAL 0.3 MG/DL (0.1-1.0); BLOOD UREA NITROGEN 8 MG/DL (7-18); CALCIUM 8.9 MG/DL (8.5-10.1); CHLORIDE 101 MMOL/L (99-107); CREATININE 0.73 MG/DL (0.40-0.90); GLUCOSE 101 MG/DL (70-104); MAGNESIUM 1.7 MG/DL (1.5-2.4); PHOSPHORUS 3.9 MG/DL (2.3-4.5); POTASSIUM 3.7 MMOL/L (3.5-5.1); SODIUM 131 MMOL/L (135-145); TOTAL CARBON DIOXIDE 22.1 MMOL/L (24-32); eCRCL 70 ML/MIN; eGFR 78 ML/MIN
[2024-09-07] MEDS: PERFLUTREN PROTEIN-A MICROSPHR (Optison) 0.22 MG/ML 3ML VIAL IV ONE (08:05)
[2024-09-07] MEDS ORDERED: GABA-1405 PO (16:27)
[2024-09-07] MEDS: LIPASE/PROTEASE/AMYLASE 4,200 unit CAPSULE.DR PO SCH (20:50)
[2024-09-08 02:00] VITALS: BP 123/55; PULSE 72; RESP 18; TEMP 98; O2SAT 95
[2024-09-08 05:30] LABS: BASOPHILS % (AUTO) 0.4 % (0-1); EOSINOPHILS # (AUTO) 0.3 X10'3 (0-0.9); EOSINOPHILS % (AUTO) 3.1 % (0-6); HEMATOCRIT 35.5 % (35.0-45.0); HEMOGLOBIN 11.8 g/dl (12.0-16.0); LYMPHOCYTES # (AUTO) 3.4 X10'3 (1.1-4.8); LYMPHOCYTES % (AUTO) 32.6 % (21-51); MEAN CORPUSCULAR HEMOGLOBIN 28.5 PG (27.0-31.0); MEAN CORPUSCULAR HGB CONC 33.2 g/dL (33.0-36.5); MEAN CORPUSCULAR VOLUME 85.8 FL (78-98); MEAN PLATELET VOLUME 7.5 FL (7.4-10.4); MONOCYTES % (AUTO) 9.4 % (2-12); NEUTROPHILS # (AUTO) 5.7 X10'3 (1.8-7.7); NEUTROPHILS % (AUTO) 54.5 % (42-75); PLATELET COUNT 304 X10'3 (140-440); RED BLOOD COUNT 4.13 X10'6 (4.20-5.60); RED CELL DISTRIBUTION WIDTH 14.8 % (11.5-14.5); WHITE BLOOD COUNT 10.4 X10'3 (4.5-11.0)
[2024-09-08 05:45] LABS: PROTHROMBIN TIME 10.5 SECONDS (9.0-12.0)
[2024-09-08 05:46] LABS: ALANINE AMINOTRANSFERASE 15 U/L (12-78); ALBUMIN 3.1 G/DL (3.4-5.0); ALBUMIN/GLOBULIN RATIO 0.8 (1.1-1.5); ALKALINE PHOSPHATASE 75 IU/L (46-116); ANION GAP 7 (8-16); ASPARTATE AMINO TRANSFERASE 17 U/L (10-37); BILIRUBIN,TOTAL 0.3 MG/DL (0.1-1.0); BLOOD UREA NITROGEN 10 MG/DL (7-18); BUN/CREATININE RATIO 12.5 (10.0-20.0); CALCIUM 9.2 MG/DL (8.5-10.1); CHLORIDE 103 MMOL/L (99-107); GLUCOSE 97 MG/DL (70-104); MAGNESIUM 1.7 MG/DL (1.5-2.4); PHOSPHORUS 4.3 MG/DL (2.3-4.5); POTASSIUM 3.6 MMOL/L (3.5-5.1); SODIUM 133 MMOL/L (135-145); TOTAL CARBON DIOXIDE 22.9 MMOL/L (24-32); TOTAL PROTEIN 7.1 G/DL (6.4-8.2); eCRCL 64 ML/MIN; eGFR 71 ML/MIN
[2024-09-08 06:00] VITALS: BP 113/46; PULSE 62; RESP 16; TEMP 97.6; O2SAT 96
[2024-09-08 08:00] VITALS: RESP 22; O2SAT 96
[2024-09-08] MEDS: magnesium hydroxide 30ml (MOM) UD suspension PO PRN (08:33)
[2024-09-08] MEDS: atenolol 50mg tablet PO SCH (08:35)
[2024-09-08 08:36] VITALS: BP_SYST 113
[2024-09-08 11:42] VITALS: PULSE 59; RESP 16; O2SAT 97
== END 2024-09-08 12:19 | disposition home health service (06) | DRG 640 ==
LOC: ER 11:02 → ED HOLD 18:20 → EDBEDREQ 21:10 → PCU 3S 09-05 05:33
PROVIDERS: ADMIT Internal Medicine; ATTEND Internal Medicine
PROC: B32T1ZZ Computerized Tomography (CT Scan) of Left Pulmonary Artery using Low Osmolar Contrast (ICD-10-PCS; principal; 2024-09-04)
PROC: B3201ZZ Computerized Tomography (CT Scan) of Thoracic Aorta using Low Osmolar Contrast (ICD-10-PCS; 2024-09-04)
PROC: B32S1ZZ Computerized Tomography (CT Scan) of Right Pulmonary Artery using Low Osmolar Contrast (ICD-10-PCS; 2024-09-04)
PROC: 3E02340 Introduction of Influenza Vaccine into Muscle, Percutaneous Approach (ICD-10-PCS; 2024-09-06)
DX: E87.1 Hypo-osmolality and hyponatremia (principal); G93.41 Metabolic encephalopathy; J98.11 Atelectasis; R07.89 Other chest pain; R91.1 Solitary pulmonary nodule; J44.9 Chronic obstructive pulmonary disease, unspecified; I10 Essential (primary) hypertension; E78.00 Pure hypercholesterolemia, unspecified; F32.A Depression, unspecified; M79.7 Fibromyalgia; M54.9 Dorsalgia, unspecified; I25.10 Atherosclerotic heart disease of native coronary artery without angina pectoris; G89.29 Other chronic pain; F41.9 Anxiety disorder, unspecified; K21.9 Gastro-esophageal reflux disease without esophagitis; I48.91 Unspecified atrial fibrillation; E11.9 Type 2 diabetes mellitus without complications; E03.9 Hypothyroidism, unspecified; I25.2 Old myocardial infarction; Z90.710 Acquired absence of both cervix and uterus; Z87.891 Personal history of nicotine dependence; Z98.891 History of uterine scar from previous surgery; Z88.1 Allergy status to other antibiotic agents; Z91.09 Other allergy status, other than to drugs and biological substances; Z23 Encounter for immunization; T50.915A Adverse effect of multiple unspecified drugs, medicaments and biological substances, initial encounter; Y92.9 Unspecified place or not applicable
CPT/HCPCS: 36415; 70450; 71045; 71275; 72040; 80053; 80061; 80162; 80305; 81001; 82248; 82948; 83036; 83690; 83735; 83880; 84100; 84145; 84439; 84443; 84484; 85025; 85379; 85610; 87040; 87081; 90686; 90732; 93005; 93306; 93308; 94760; 97116; 97161; 97530; 99285; A6212; A6258; G0378; J7030; Q9956; Q9967

== ENCOUNTER 2024-09-17 19:07 | Emergency (ER) | payer MEDICARE, MEDICAID ==
[~2024-09-17] VITALS: Ht 172.7 cm; Wt 73.0 kg
[~2024-09-17 19:07] MED LIST changes: -ASPI-1265 PO; -B CO1TAB7 PO; -BENZ200C53 PO; -BUDE10.2 INH; +DESV100T16 PO; -DIGO250T2 PO; -DOCU100C41 PO; +ESTR1TAB28 PO; +GABA-1405 PO; -GABA-532 PO; -HYDR12.55 PO; +LISI10TA27 PO; -LISI2.5T14 PO; -OMEP20CA15 PO; +OMEP20CA16 PO; -PREG50CA PO; +SIMV-45 PO; -SIMV10TA98 PO
[2024-09-17 19:41] VITALS: TEMP 97.4
[2024-09-17 20:16] LABS: BASOPHILS % (AUTO) 0.2 % (0-1); EOSINOPHILS % (AUTO) 0.3 % (0-6); HEMATOCRIT 37.2 % (35.0-45.0); HEMOGLOBIN 12.2 g/dl (12.0-16.0); LYMPHOCYTES # (AUTO) 1.9 X10'3 (1.1-4.8); LYMPHOCYTES % (AUTO) 13.8 % (21-51); MEAN CORPUSCULAR HEMOGLOBIN 28.7 PG (27.0-31.0); MEAN CORPUSCULAR VOLUME 87.1 FL (78-98); MEAN PLATELET VOLUME 7.5 FL (7.4-10.4); MONOCYTES # (AUTO) 0.9 X10'3 (0-0.9); MONOCYTES % (AUTO) 6.6 % (2-12); NEUTROPHILS % (AUTO) 79.1 % (42-75); PLATELET COUNT 401 X10'3 (140-440); RED BLOOD COUNT 4.26 X10'6 (4.20-5.60); RED CELL DISTRIBUTION WIDTH 15.1 % (11.5-14.5); WHITE BLOOD COUNT 13.9 X10'3 (4.5-11.0)
[2024-09-17 20:29] LABS: ALANINE AMINOTRANSFERASE 17 U/L (12-78); ALBUMIN 3.6 G/DL (3.4-5.0); ALBUMIN/GLOBULIN RATIO 0.9 (1.1-1.5); ALKALINE PHOSPHATASE 81 IU/L (46-116); ANION GAP 17 (8-16); ASPARTATE AMINO TRANSFERASE 21 U/L (10-37); BILIRUBIN,TOTAL 0.4 MG/DL (0.1-1.0); BLOOD UREA NITROGEN 13 MG/DL (7-18); BUN/CREATININE RATIO 8.9 (10.0-20.0); CALCIUM 9.6 MG/DL (8.5-10.1); CHLORIDE 102 MMOL/L (99-107); CREATININE 1.46 MG/DL (0.40-0.90); GLUCOSE 260 MG/DL (70-104); POTASSIUM 3.7 MMOL/L (3.5-5.1); SODIUM 138 MMOL/L (135-145); TOTAL CARBON DIOXIDE 19.1 MMOL/L (24-32); TOTAL PROTEIN 7.7 G/DL (6.4-8.2); eCRCL 35 ML/MIN; eGFR 35 ML/MIN
[2024-09-17 20:36] LABS: PRO BRAIN NATRIURETIC PEPTIDE 313 PG/ML (0-125)
[2024-09-17] MEDS: normal saline 1000ML IV soln IVB ONE (22:46)
[2024-09-18 00:26] VITALS: BP 124/62; PULSE 78; RESP 16; O2SAT 97
== END 2024-09-18 00:34 | disposition home or self-care (01) ==
LOC: ER 19:08
DX: N17.9 Acute kidney failure, unspecified (principal); Z20.822 Contact with and (suspected) exposure to COVID-19; E86.0 Dehydration; R53.1 Weakness; E03.9 Hypothyroidism, unspecified; E11.9 Type 2 diabetes mellitus without complications; E78.00 Pure hypercholesterolemia, unspecified; G89.29 Other chronic pain; I48.91 Unspecified atrial fibrillation; J44.9 Chronic obstructive pulmonary disease, unspecified; K21.9 Gastro-esophageal reflux disease without esophagitis; M19.90 Unspecified osteoarthritis, unspecified site; M79.7 Fibromyalgia; I25.2 Old myocardial infarction; I10 Essential (primary) hypertension; Z88.1 Allergy status to other antibiotic agents; Z88.8 Allergy status to other drugs, medicaments and biological substances; Z79.899 Other long term (current) drug therapy; Z90.710 Acquired absence of both cervix and uterus
CPT/HCPCS: 36415; 71045; 80053; 83880; 84145; 84484; 85025; 87811; 93005; 96360; 99285; J7030

== ENCOUNTER 2024-10-02 10:59 | Inpatient (IN) | payer MEDICARE, MEDICAID ==
[~2024-10-02] VITALS: Ht 172.7 cm; Wt 75.0 kg
[2024-10-02] MEDS ORDERED: aspirin 81mg tab.chew PO ONE (11:15)
[2024-10-02 11:32] LABS: BASOPHILS % (AUTO) 0.4 % (0-1); EOSINOPHILS # (AUTO) 0.2 X10'3 (0-0.9); EOSINOPHILS % (AUTO) 1.5 % (0-6); HEMATOCRIT 39.1 % (35.0-45.0); LYMPHOCYTES # (AUTO) 3.9 X10'3 (1.1-4.8); LYMPHOCYTES % (AUTO) 37.3 % (21-51); MEAN CORPUSCULAR HEMOGLOBIN 28.5 PG (27.0-31.0); MEAN CORPUSCULAR HGB CONC 33.3 g/dL (33.0-36.5); MEAN CORPUSCULAR VOLUME 85.5 FL (78-98); MEAN PLATELET VOLUME 8.2 FL (7.4-10.4); MONOCYTES # (AUTO) 0.8 X10'3 (0-0.9); MONOCYTES % (AUTO) 7.8 % (2-12); NEUTROPHILS # (AUTO) 5.6 X10'3 (1.8-7.7); PLATELET COUNT 257 X10'3 (140-440); RED BLOOD COUNT 4.57 X10'6 (4.20-5.60); RED CELL DISTRIBUTION WIDTH 15.2 % (11.5-14.5); WHITE BLOOD COUNT 10.6 X10'3 (4.5-11.0)
[2024-10-02 12:09] LABS: ALBUMIN 3.4 G/DL (3.4-5.0); BLOOD UREA NITROGEN 8 MG/DL (7-18); BUN/CREATININE RATIO 11.9 (10.0-20.0); CALCIUM 9.6 MG/DL (8.5-10.1); CREATININE 0.67 MG/DL (0.40-0.90); ETHANOL < 10 MG/DL (<10); GLUCOSE 138 MG/DL (70-104); MAGNESIUM 1.7 MG/DL (1.5-2.4); POTASSIUM 3.7 MMOL/L (3.5-5.1); PRO BRAIN NATRIURETIC PEPTIDE 421 PG/ML (0-125); SALICYLATE 4.9 MG/DL (4.0-20.0); SODIUM 135 MMOL/L (135-145); TOTAL CARBON DIOXIDE 20.1 MMOL/L (24-32); eCRCL 77 ML/MIN; eGFR 87 ML/MIN
[2024-10-02 12:12] LABS: ANION GAP 12 (8-16); CHLORIDE 103 MMOL/L (99-107); DIGOXIN 1.6 NG/ML (0.9-1.9)
[2024-10-02] MEDS: ondansetron/PF 4mg/2ml inj IV ONE (12:44)
[2024-10-02] MEDS ORDERED: magnesium sulf-water 4G/100mL 100 ML IV PRN (13:30)
[2024-10-02] MEDS ORDERED: magnesium sulf-water 2g/50mL 50 ML IV PRN (13:30)
[2024-10-02] MEDS ORDERED: magnesium hydroxide 30ml (MOM) UD suspension PO PRN (13:30)
[2024-10-02] MEDS ORDERED: mag hydrox/Alum hydrox/simeth 30ml oral suspension PO PRN (13:30)
[2024-10-02] MEDS ORDERED: magnesium Cl slow-release 64mg tablet PO PRN (13:30)
[2024-10-02] MEDS ORDERED: ondansetron/PF 4mg/2ml inj IV PRN (13:30)
[2024-10-02] MEDS ORDERED: acetaminophen 325mg tablet PO PRN (13:30)
[2024-10-02] MEDS ORDERED: potassium Cl 20 mEq SR tablet PO PRN ×2 (13:30)
[2024-10-02] MEDS ORDERED: potassium Cl 40MEQ/1/2NS 520ml 520 ML IV PRN (13:30)
[2024-10-02 13:52] LABS: APTT 26 SECONDS (22-32); PROTHROMBIN TIME 10.3 SECONDS (9.0-12.0)
[2024-10-02 14:13] LABS: THYROID STIMULATING HORMONE 5.04 ulU/ml (0.34-4.50)
[2024-10-02 16:12] VITALS: BP 103/38; PULSE 64; RESP 16; TEMP 97.8; O2SAT 98
[2024-10-02] MEDS: normal saline 1000ml 1,000 ML IV SCH (17:39)
[2024-10-02] MEDS ORDERED: albuterol 2.5 MG/3 ML nebule NEB PRN (18:15)
[2024-10-02] MEDS: docusate sod 100mg capsule PO SCH (19:00)
[2024-10-02] MEDS: acetaminophen 325mg tablet PO PRN (19:00)
[2024-10-02 20:00] VITALS: BP_SYST 108; BP_SYST 92; BP_DIAS 29; BP_DIAS 48; PULSE 62; PULSE 65
[2024-10-02] MEDS: K and/or MAG REPLACEMENT MC SCH (20:00)
[2024-10-02 20:28] LABS: BILIRUBIN,URINE NEGATIVE (Neg); CLARITY,URINE SLIGHTLY CLOUDY (Clear); COLOR,URINE YELLOW (Yellow); GLUCOSE, URINE NEGATIVE (Neg); KETONES,URINE NEGATIVE (Neg); LEUKOCYTE ESTERASE ,URINE NEGATIVE (Neg); NITRITES, URINE NEGATIVE (Neg); OCCULT BLOOD,URINE NEGATIVE (Neg); PROTEIN,URINE 30 mg/dl (Neg); UROBILINOGEN,URINE 0.2 E.U/dL (0.2-1.0)
[2024-10-02 20:33] LABS: UA COLLECTION TYPE NON-SPECIFIED
[2024-10-02 20:34] LABS: BACTERIA,URINE 1+ /HPF (Neg); RBC,URINE NONE SEEN /HPF (0-2); SQUAMOUS EPITHELIAL CELL,UR MANY /LPF (FEW); WBC,URINE 0-4 /HPF (0-4)
[2024-10-02 21:22] LABS: URINE AMPHETAMINE SCREEN NEGATIVE (Neg); URINE BARBITUATE SCREEN NEGATIVE (Neg); URINE BENZODIAZEPINES SCREEN NEGATIVE (Neg); URINE CANNABINOID SCREEN NEGATIVE (Neg); URINE COCAINE SCREEN NEGATIVE (Neg); URINE METHADONE SCREEN NEGATIVE (Neg); URINE OPIATE SCREEN NEGATIVE (Neg); URINE PHENCYCLIDINE SCREEN NEGATIVE (Neg)
[2024-10-02 22:00] VITALS: BP 100/35; PULSE 58; RESP 14; TEMP 96.8; O2SAT 94
[2024-10-03 06:00] VITALS: BP 123/43; PULSE 52; RESP 16; TEMP 97.4; O2SAT 98
[2024-10-03 06:29] LABS: BASOPHILS % (AUTO) 0.5 % (0-1); EOSINOPHILS # (AUTO) 0.3 X10'3 (0-0.9); EOSINOPHILS % (AUTO) 3.3 % (0-6); HEMATOCRIT 35.7 % (35.0-45.0); HEMOGLOBIN 11.9 g/dl (12.0-16.0); LYMPHOCYTES # (AUTO) 3.1 X10'3 (1.1-4.8); LYMPHOCYTES % (AUTO) 39.2 % (21-51); MEAN CORPUSCULAR HEMOGLOBIN 28.3 PG (27.0-31.0); MEAN CORPUSCULAR HGB CONC 33.3 g/dL (33.0-36.5); MEAN PLATELET VOLUME 8.2 FL (7.4-10.4); MONOCYTES # (AUTO) 0.7 X10'3 (0-0.9); MONOCYTES % (AUTO) 9.3 % (2-12); NEUTROPHILS # (AUTO) 3.8 X10'3 (1.8-7.7); NEUTROPHILS % (AUTO) 47.7 % (42-75); PLATELET COUNT 219 X10'3 (140-440); RED CELL DISTRIBUTION WIDTH 15.4 % (11.5-14.5)
[2024-10-03 06:44] LABS: ALANINE AMINOTRANSFERASE 16 U/L (12-78); ALBUMIN 2.8 G/DL (3.4-5.0); ALBUMIN/GLOBULIN RATIO 0.8 (1.1-1.5); ALKALINE PHOSPHATASE 59 IU/L (46-116); ANION GAP 10 (8-16); ASPARTATE AMINO TRANSFERASE 12 U/L (10-37); BILIRUBIN,TOTAL 0.3 MG/DL (0.1-1.0); BLOOD UREA NITROGEN 15 MG/DL (7-18); BUN/CREATININE RATIO 17.6 (10.0-20.0); CALCIUM 8.7 MG/DL (8.5-10.1); CHLORIDE 106 MMOL/L (99-107); CHOL/HDL RATIO 2.6 (0.00-4.99); CHOLESTEROL 152 MG/DL (0-200); CREATININE 0.85 MG/DL (0.40-0.90); GLUCOSE 99 MG/DL (70-104); HDL CHOLESTEROL 58 MG/DL (35-60); LDL CHOLESTEROL 76 MG/DL (50-100); MAGNESIUM 1.7 MG/DL (1.5-2.4); POTASSIUM 3.9 MMOL/L (3.5-5.1); SODIUM 137 MMOL/L (135-145); TOTAL CARBON DIOXIDE 21.2 MMOL/L (24-32); TOTAL PROTEIN 6.3 G/DL (6.4-8.2); TRIGLYCERIDES 60 MG/DL (20-135); eCRCL 60 ML/MIN; eGFR 66 ML/MIN
[2024-10-03] MEDS ORDERED: QUEtiapine 25mg tablet PO PRN (08:25)
[2024-10-03 10:00] VITALS: BP 96/43; PULSE 60; RESP 18; TEMP 97.6; O2SAT 95
[2024-10-03] MEDS: LIPASE/PROTEASE/AMYLASE 10,500 units CAPSULE.DR PO SCH (13:32)
[2024-10-03] MEDS ORDERED: non-formulary drug (Calcium Cmb 2/Mag Cmb 12/Vitd3 (Calcium 500 Mg Tablet) 1 TAB) PO SCH (20:00)
[2024-10-03] MEDS ORDERED: gabapentin 300mg capsule PO SCH (20:00)
[2024-10-03] MEDS ORDERED: enoxaparin 40mg/0.4ml syringe SUBCUT SCH (20:00)
[2024-10-03] MEDS ORDERED: ROPINIRole 0.25mg tablet PO SCH (21:00)
[2024-10-03] MEDS ORDERED: simvastatin 20mg tablet PO SCH (21:00)
[2024-10-04] MEDS ORDERED: levoTHYROXINE 25mcg tablet PO SCH (07:00)
[2024-10-04] MEDS ORDERED: levoTHYROXINE 112mcg tablet PO SCH (07:00)
[2024-10-04] MEDS ORDERED: multivitamins, therapeutics tablet PO SCH (08:00)
[2024-10-04] MEDS ORDERED: cholecalciferol (vitamin D3) 400 unit (10mcg) tablet PO SCH (08:00)
[2024-10-04] MEDS ORDERED: lisinopril 10 MG tablet PO SCH (08:00)
[2024-10-04] MEDS ORDERED: estradiol 1mg tablet PO SCH (08:00)
== END 2024-10-03 15:45 | disposition home health service (06) | DRG 918 ==
LOC: ER 11:00 → ED HOLD 13:30 → EDBEDREQ 14:48 → EDBEDREQTM 14:48 → ORTHO 4S 16:02
PROVIDERS: ADMIT Family Medicine; ATTEND Family Medicine
DX: T44.7X1A Poisoning by beta-adrenoreceptor antagonists, accidental (unintentional), initial encounter (principal); T50.2X1A Poisoning by carbonic-anhydrase inhibitors, benzothiadiazides and other diuretics, accidental (unintentional), initial encounter; T38.5X1A Poisoning by other estrogens and progestogens, accidental (unintentional), initial encounter; T47.5X1A Poisoning by digestants, accidental (unintentional), initial encounter; T43.591A Poisoning by other antipsychotics and neuroleptics, accidental (unintentional), initial encounter; T46.0X1A Poisoning by cardiac-stimulant glycosides and drugs of similar action, accidental (unintentional), initial encounter; J44.9 Chronic obstructive pulmonary disease, unspecified; M79.7 Fibromyalgia; E78.00 Pure hypercholesterolemia, unspecified; E11.9 Type 2 diabetes mellitus without complications; E03.9 Hypothyroidism, unspecified; I10 Essential (primary) hypertension; K21.9 Gastro-esophageal reflux disease without esophagitis; F41.9 Anxiety disorder, unspecified; F32.A Depression, unspecified; G89.29 Other chronic pain; Z60.2 Problems related to living alone; M54.9 Dorsalgia, unspecified; I48.91 Unspecified atrial fibrillation; Z88.5 Allergy status to narcotic agent; Z90.710 Acquired absence of both cervix and uterus; Z85.820 Personal history of malignant melanoma of skin; I25.2 Old myocardial infarction; Z88.1 Allergy status to other antibiotic agents; Y92.89 Other specified places as the place of occurrence of the external cause; Z79.899 Other long term (current) drug therapy; Z98.891 History of uterine scar from previous surgery
CPT/HCPCS: 36415; 71045; 80048; 80053; 80061; 80162; 80305; 80320; 80329; 81001; 82948; 83735; 83880; 84439; 84443; 84484; 85025; 85610; 85730; 87081; 93005; 97110; 97161; 97530; 99285; A4615; G0378; J7030

== ENCOUNTER 2024-10-10 11:11 | Inpatient (IN) | payer MEDICARE, MEDICAID ==
[~2024-10-10] VITALS: Ht 167.6 cm; Wt 78.1 kg
[~2024-10-10 11:11] MED LIST changes: -DESV100T16 PO
[2024-10-10 12:06] LABS: BASOPHILS % (AUTO) 0.3 % (0-1); EOSINOPHILS # (AUTO) 0.1 X10'3 (0-0.9); EOSINOPHILS % (AUTO) 0.6 % (0-6); HEMATOCRIT 35.5 % (35.0-45.0); HEMOGLOBIN 11.9 g/dl (12.0-16.0); LYMPHOCYTES % (AUTO) 20.9 % (21-51); MEAN CORPUSCULAR HEMOGLOBIN 28.6 PG (27.0-31.0); MEAN CORPUSCULAR HGB CONC 33.4 g/dL (33.0-36.5); MEAN CORPUSCULAR VOLUME 85.7 FL (78-98); MEAN PLATELET VOLUME 7.9 FL (7.4-10.4); MONOCYTES # (AUTO) 0.5 X10'3 (0-0.9); MONOCYTES % (AUTO) 5.1 % (2-12); NEUTROPHILS % (AUTO) 73.1 % (42-75); PLATELET COUNT 249 X10'3 (140-440); RED BLOOD COUNT 4.15 X10'6 (4.20-5.60); RED CELL DISTRIBUTION WIDTH 15.7 % (11.5-14.5); WHITE BLOOD COUNT 9.5 X10'3 (4.5-11.0)
[2024-10-10] MEDS: dextrose 50%-water 50ml dispensing syringe IV ONE ×3 (12:08→18:53)
[2024-10-10 12:15] LABS: APTT 27 SECONDS (22-32); PROTHROMBIN TIME 10.5 SECONDS (9.0-12.0)
[2024-10-10 12:19] LABS: ALANINE AMINOTRANSFERASE 10 U/L (12-78); ALBUMIN 3.1 G/DL (3.4-5.0); ALBUMIN/GLOBULIN RATIO 0.8 (1.1-1.5); ALKALINE PHOSPHATASE 73 IU/L (46-116); ANION GAP 11 (8-16); ASPARTATE AMINO TRANSFERASE 18 U/L (10-37); BILIRUBIN,TOTAL 0.3 MG/DL (0.1-1.0); BLOOD UREA NITROGEN 29 MG/DL (7-18); BUN/CREATININE RATIO 19.1 (10.0-20.0); CALCIUM 9.5 MG/DL (8.5-10.1); CHLORIDE 101 MMOL/L (99-107); CREATININE 1.52 MG/DL (0.40-0.90); GLUCOSE 132 MG/DL (70-104); POTASSIUM 4.2 MMOL/L (3.5-5.1); SODIUM 137 MMOL/L (135-145); TOTAL CARBON DIOXIDE 24.6 MMOL/L (24-32); eCRCL 31 ML/MIN; eGFR 34 ML/MIN
[2024-10-10 12:23] LABS: ETHANOL < 10 MG/DL (<10)
[2024-10-10 13:59] LABS: URINE AMPHETAMINE SCREEN NEGATIVE (Neg); URINE BARBITUATE SCREEN NEGATIVE (Neg); URINE BENZODIAZEPINES SCREEN NEGATIVE (Neg); URINE CANNABINOID SCREEN NEGATIVE (Neg); URINE COCAINE SCREEN NEGATIVE (Neg); URINE METHADONE SCREEN NEGATIVE (Neg); URINE OPIATE SCREEN NEGATIVE (Neg); URINE PHENCYCLIDINE SCREEN NEGATIVE (Neg)
[2024-10-10 14:08] LABS: ACETAMINOPHEN < 2.0 UG/ML (10-30); DIGOXIN 2.2 NG/ML (0.9-1.9)
[2024-10-10] MEDS ORDERED: mag hydrox/Alum hydrox/simeth 30ml oral suspension PO PRN (15:00)
[2024-10-10] MEDS ORDERED: magnesium sulf-water 2g/50mL 50 ML IV PRN (15:00)
[2024-10-10] MEDS ORDERED: magnesium hydroxide 30ml (MOM) UD suspension PO PRN (15:00)
[2024-10-10] MEDS ORDERED: magnesium Cl slow-release 64mg tablet PO PRN (15:00)
[2024-10-10] MEDS ORDERED: potassium Cl 40MEQ/1/2NS 520ml 520 ML IV PRN (15:00)
[2024-10-10] MEDS ORDERED: magnesium sulf-water 4G/100mL 100 ML IV PRN (15:00)
[2024-10-10] MEDS ORDERED: ondansetron/PF 4mg/2ml inj IV PRN (15:00)
[2024-10-10] MEDS ORDERED: acetaminophen 325mg tablet PO PRN (15:00)
[2024-10-10] MEDS ORDERED: potassium Cl 20 mEq SR tablet PO PRN ×2 (15:00)
[2024-10-10 15:45] LABS: MAGNESIUM 1.8 MG/DL (1.5-2.4); PHOSPHORUS 5.9 MG/DL (2.3-4.5)
[2024-10-10] MEDS ORDERED: LAN0.125T PO (16:59)
[2024-10-10] MEDS ORDERED: UMEC62.5 PO (16:59)
[2024-10-10] MEDS ORDERED: MONT-40 PO (16:59)
[2024-10-10] MEDS ORDERED: BUSP10TA3 PO (16:59)
[2024-10-10] MEDS ORDERED: HYDR12.55 PO (16:59)
[2024-10-10] MEDS ORDERED: PRAZ2CAP2 PO (16:59)
[2024-10-10] MEDS ORDERED: ATEN50TA8 PO (16:59)
[2024-10-10 17:06] LABS: BILIRUBIN,URINE NEGATIVE (Neg); CLARITY,URINE CLEAR (Clear); COLOR,URINE YELLOW (Yellow); GLUCOSE, URINE NEGATIVE (Neg); KETONES,URINE NEGATIVE (Neg); LEUKOCYTE ESTERASE ,URINE NEGATIVE (Neg); NITRITES, URINE NEGATIVE (Neg); OCCULT BLOOD,URINE NEGATIVE (Neg); PROTEIN,URINE NEGATIVE (Neg); UROBILINOGEN,URINE 0.2 E.U/dL (0.2-1.0)
[2024-10-10 17:09] LABS: UA COLLECTION TYPE NON-SPECIFIED
[2024-10-10 17:58] VITALS: TEMP 97.8
[2024-10-10] MEDS: sodium bicarbonate (8.4%) 1 mEq/ml syringe IV ONE (18:00)
[2024-10-10] MEDS: dextrose 5%-water 1,000 ML IV SCH (18:13)
[2024-10-10] MEDS ORDERED: dextrose 50%-water 50ml dispensing syringe IV PRN (18:55)
[2024-10-10] MEDS ORDERED: DEXTROSE 15 GM of carb/4 tabs (each vial/BOTTLE has 4 tablets) PO PRN ×2 (18:55)
[2024-10-10] MEDS ORDERED: glucagon, human recombinant 1mg kit SUBCUT PRN (18:55)
[2024-10-10] MEDS ORDERED: DEXTROSE 70% IV SCH ×2 (19:50→20:03)
[2024-10-10] MEDS ORDERED: WATER IV SCH ×2 (19:50→20:03)
[2024-10-10] MEDS ORDERED: [UNRECOGNIZED DRUG - OTHER] IV SCH (19:50)
[2024-10-10] MEDS ORDERED: glucagon, human recombinant 1mg kit IV ONE (19:50)
[2024-10-10] MEDS: K and/or MAG REPLACEMENT MC SCH (20:00)
[2024-10-10] MEDS ORDERED: NORMAL SALINE IV SCH (20:03)
[2024-10-10] MEDS: dextrose 50%-water 50ml dispensing syringe IV PRN (20:35)
[2024-10-10] MEDS: Dextrose 10%-water IV solution 1,000 ML IV SCH (21:10)
[2024-10-10] MEDS: glucagon, human recombinant 1mg kit IV ONE (21:20)
[2024-10-10] MEDS: WATER FOR INJ IV SCH (21:38)
[2024-10-10] MEDS: DEXTROSE 70% IV SCH (21:38)
[2024-10-10] MEDS: WATER IV SCH (21:38)
[2024-10-10] MEDS: STERILE IV SCH (21:38)
[2024-10-10 21:55] LABS: BILIRUBIN,URINE NEGATIVE (Neg); CLARITY,URINE CLEAR (Clear); COLOR,URINE YELLOW (Yellow); GLUCOSE, URINE NEGATIVE (Neg); KETONES,URINE NEGATIVE (Neg); LEUKOCYTE ESTERASE ,URINE NEGATIVE (Neg); NITRITES, URINE NEGATIVE (Neg); OCCULT BLOOD,URINE NEGATIVE (Neg); PH,URINE 6.5 (4.8-8.0); PROTEIN,URINE NEGATIVE (Neg); UROBILINOGEN,URINE 0.2 E.U/dL (0.2-1.0)
[2024-10-10 21:58] LABS: UA COLLECTION TYPE NON-SPECIFIED
[2024-10-10 22:13] LABS: UA EOSINOPHILS NO EOS /HPF
[2024-10-10 22:24] LABS: TOTAL PROTEIN,URINE RANDOM 12.2 MG/DL
[2024-10-10 23:34] LABS: DIGOXIN 1.2 NG/ML (0.9-1.9)
[2024-10-10] MEDS: docusate sod 100mg capsule PO SCH (23:37)
[2024-10-10] MEDS: octreotide 100mcg/1 ml ampule IV ONE (23:52)
[2024-10-10 23:54] LABS: ACETAMINOPHEN < 2.0 UG/ML (10-30)
[2024-10-10] MEDS: octreotide inj. 500 MCG in normal saline 100ml IV soln 97.5 ML IV SCH (23:58)
[2024-10-11] MEDS: dextrose 50%-water 50ml dispensing syringe IV ONE (01:52)
[2024-10-11] MEDS: sodium bicarbonate (8.4%) 1 mEq/ml syringe IV ONE (02:57)
[2024-10-11 03:17] LABS: BASOPHILS % (AUTO) 0.4 % (0-1); EOSINOPHILS # (AUTO) 0.2 X10'3 (0-0.9); EOSINOPHILS % (AUTO) 1.6 % (0-6); HEMATOCRIT 32.5 % (35.0-45.0); HEMOGLOBIN 10.9 g/dl (12.0-16.0); LYMPHOCYTES # (AUTO) 2.8 X10'3 (1.1-4.8); LYMPHOCYTES % (AUTO) 23.4 % (21-51); MEAN CORPUSCULAR HEMOGLOBIN 28.5 PG (27.0-31.0); MEAN CORPUSCULAR HGB CONC 33.6 g/dL (33.0-36.5); MEAN CORPUSCULAR VOLUME 84.8 FL (78-98); MONOCYTES % (AUTO) 8.4 % (2-12); NEUTROPHILS # (AUTO) 7.9 X10'3 (1.8-7.7); NEUTROPHILS % (AUTO) 66.2 % (42-75); PLATELET COUNT 246 X10'3 (140-440); RED BLOOD COUNT 3.84 X10'6 (4.20-5.60); RED CELL DISTRIBUTION WIDTH 15.3 % (11.5-14.5); WHITE BLOOD COUNT 11.9 X10'3 (4.5-11.0)
[2024-10-11 03:38] LABS: ALANINE AMINOTRANSFERASE 11 U/L (12-78); ALBUMIN 2.9 G/DL (3.4-5.0); ALBUMIN/GLOBULIN RATIO 0.8 (1.1-1.5); ALKALINE PHOSPHATASE 70 IU/L (46-116); ANION GAP 10 (8-16); ASPARTATE AMINO TRANSFERASE 10 U/L (10-37); BILIRUBIN,TOTAL 0.4 MG/DL (0.1-1.0); BLOOD UREA NITROGEN 31 MG/DL (7-18); BUN/CREATININE RATIO 25.6 (10.0-20.0); CALCIUM 8.4 MG/DL (8.5-10.1); CHLORIDE 103 MMOL/L (99-107); CHOL/HDL RATIO 1.7 (0.00-4.99); CHOLESTEROL 121 MG/DL (0-200); CREATININE 1.21 MG/DL (0.40-0.90); GLUCOSE 104 MG/DL (70-104); HDL CHOLESTEROL 71 MG/DL (35-60); LDL CHOLESTEROL 45 MG/DL (50-100); MAGNESIUM 1.4 MG/DL (1.5-2.4); SODIUM 136 MMOL/L (135-145); TOTAL CARBON DIOXIDE 23.5 MMOL/L (24-32); TOTAL PROTEIN 6.5 G/DL (6.4-8.2); TRIGLYCERIDES 31 MG/DL (20-135); eCRCL 39 ML/MIN; eGFR 44 ML/MIN
[2024-10-11 04:30] VITALS: BP 125/61; PULSE 68; RESP 18; O2SAT 95
[2024-10-11] MEDS: LORazepam 2 mg/ml vial IV ONE (04:43)
[2024-10-11] MEDS ORDERED: DICLOFENAC SODIUM 1% gel 1 APPLIC APPLIC TP PRN (05:55)
== END 2024-10-11 06:00 | disposition left against medical advice (07) | DRG 917 ==
LOC: ER 11:11 → ED HOLD 14:31
PROVIDERS: ADMIT Family Medicine; ATTEND Family Medicine
DX: T46.0X1A Poisoning by cardiac-stimulant glycosides and drugs of similar action, accidental (unintentional), initial encounter (principal); N17.0 Acute kidney failure with tubular necrosis; R00.1 Bradycardia, unspecified; E11.649 Type 2 diabetes mellitus with hypoglycemia without coma; I10 Essential (primary) hypertension; E78.00 Pure hypercholesterolemia, unspecified; E03.9 Hypothyroidism, unspecified; I48.91 Unspecified atrial fibrillation; F32.A Depression, unspecified; F41.9 Anxiety disorder, unspecified; K74.69 Other cirrhosis of liver; Z53.29 Procedure and treatment not carried out because of patient's decision for other reasons; G89.29 Other chronic pain; K21.9 Gastro-esophageal reflux disease without esophagitis; M54.9 Dorsalgia, unspecified; F10.90 Alcohol use, unspecified, uncomplicated; J44.9 Chronic obstructive pulmonary disease, unspecified; M79.7 Fibromyalgia; Z88.5 Allergy status to narcotic agent; I25.2 Old myocardial infarction; Z88.8 Allergy status to other drugs, medicaments and biological substances; Z91.09 Other allergy status, other than to drugs and biological substances; Z88.1 Allergy status to other antibiotic agents; Z90.710 Acquired absence of both cervix and uterus; Z98.891 History of uterine scar from previous surgery; Y92.89 Other specified places as the place of occurrence of the external cause; Z85.820 Personal history of malignant melanoma of skin
CPT/HCPCS: 36415; 71045; 80053; 80061; 80162; 80305; 80320; 80329; 81003; 82570; 82948; 83735; 83930; 83935; 84100; 84156; 84300; 84484; 85025; 85610; 85730; 87081; 87207; 93005; 99285; A6258; A6449; C1758; G0378; J1610; J2060; J2354; J3490; J7070

== ENCOUNTER 2025-06-07 04:45 | Emergency (ER) | payer MEDICARE, MEDICAID ==
[~2025-06-07] VITALS: Ht 172.7 cm; Wt 76.0 kg
[~2025-06-07 04:45] MED LIST changes: +ATEN50TA8 PO; +BUSP10TA3 PO; -CALC-212 PO; -CHOL400T14 PO; -GABA-1405 PO; +HYDR12.55 PO; +LAN0.125T PO; -LIPA1CAP18 PO; +MONT-40 PO; -MONT-47 PO; -MULT-620 PO; +PRAZ2CAP2 PO; +UMEC62.5 PO
[2025-06-07 04:46] VITALS: TEMP 97.5
--- NOTE | 2025-06-07 04:54 | VISIT NOTE ---
ED Rapid Medical Assessment History This is a 75-year-old female who presents for evaluation of sudden unprovoked onset right jaw pain at the TMJ radiating into her ear and lateral face. This woke her up from sleep at 3:00 a.m.. No obvious trigger provocation. Worse with opening the jaw. Never experienced anything like that. No particular palliating factors. Did not attempt to treat it. Denies any trauma. Denies headache, chest pain, difficulty breathing. Denies vision changes. Exam: GENERAL: Awake, alert, oriented, GCS 15, no apparent distress, non-toxic appearing, answers questions, follows commands appropriately. Examined immediately upon arrival in bed 1. HEENT: Atraumatic, normocephalic, pupils equal, extraocular muscles intact, sclerae anicteric, mucus membranes moist, oropharynx is clear, no stridor. NECK: supple, full active range of motion, trachea midline, no thyromegaly, no lymphadenopathy, no JVD. CARDIOVASCULAR: regular rate/rhythm, no murmurs/gallops/rubs, Pulses are 2+ in all extremities and symmetric. Capillary refill less than 2 seconds. PULMONARY: Nonlabored, good air movement ,no respiratory distress, speaking in full sentences, clear to auscultation bilaterally, no wheezing, no ronchi, no rales, no accessory muscle use. GASTROINTESTINAL: Soft, non-tender, non-distended, normal active bowel sounds, no organomegaly, no pulsatile masses, no CVA tenderness. NEUROLOGIC: Lucid with normal mental status. Normal facial symmetry. Moves all extremities symmetrically and with purpose. No truncal ataxia. Speech is fluid without evidence of dysarthria or aphasia, no focal deficits appreciated. MUSCULOSKELETAL: There is full range of motion of all extremities. There is no joint pain or joint swelling or joint erythema. There is no muscle pain or tenderness or swelling. EXTREMITIES: warm, well-perfused, no cyanosis, no clubbing, no edema, no acute deformities. Skin: warm, dry, no rashes or lesions, no jaundice, no petechiae orpurpura. No ecchymosis. PSYCHIATRIC: Normal affect, normal insight, normal concentration. Focused exam: Exquisitely tender to palpation over right TMJ joint. Did not appreciate any calor, however the patient did have a ice pack over it. No trismus. No drooling. No hot potato voice. No floor of the mouth elevation. Posterior oropharynx is patent with a she is protecting her airway. Assessment and Plan Differential includes but not limited to TMJ arthritis, septic joint at the TMJ, giant cell arteritis, cluster headache, trigeminal neuralgia, unlikely to be dental related pain as she is completely edentulous and wears dentures. SHANTI WILSON DO Jun 07, 2025 04:54
[2025-06-07] MEDS: ondansetron/PF 4mg/2ml inj IV ONE (05:01)
[2025-06-07] MEDS: morphine 4 MG/ML inj SYRINge IV ONE (05:01)
[2025-06-07] MEDS ORDERED: iohexol 300mg/ml 100ml inj. ONE (05:24)
[2025-06-07 05:25] LABS: MEAN PLATELET VOLUME 7.7 FL (7.4-10.4); RED CELL DISTRIBUTION WIDTH 14.0 % (11.5-14.5)
[2025-06-07] MEDS: fentaNYL/PF 50MCG/1 ML 2ML syringe IV ONE (05:40)
[2025-06-07 05:41] LABS: CREATININE 0.73 MG/DL (0.40-0.90); TOTAL CARBON DIOXIDE 20.6 MMOL/L (24-32); eCRCL 69 ML/MIN; eGFR 78 ML/MIN
--- NOTE | 2025-06-07 07:41 | RADIOLOGY REPORT ---
CLINICAL INDICATION: Sudden severe R jaw pain TECHNIQUE: CT scan of the facial bones performed with 100 mL Omnipaque 300 intravenous contrast was p erformed. Sagittal and coronal reformatted images are provided. COMPARISON: None. CT Dose: CTDI volume is 64.3 mGy. Dose-length product is 1048.6 mGy*cm FINDINGS: No fracture or dislocation. No cortical destruction. Patient is edentulous. There is opacification of the right maxillary sinus with high attenuating foci in the center of the right maxillary sinus. No air-fluid levels in the paranasal sinuses. No patholo gic intracranial enhancement. Postsurgical changes in the spine. IMPRESSION: 1. Opacification of the right maxillary sinus with high attenuating foci may reflect inspissated secr etions or fungal sinusitis. No air-fluid levels. No CT evidence of osteomyelitis. All CT scans at this medical facility are performed using dose modulation techniques as appropriate t o a performed exam including the following: Automated exposure control was utilized; adjustment of th e MA and/or KV according to patient size; and use of iterative reconstruction technique.
[2025-06-07] MEDS: CefTRIAXone/D5W-Rocephin 1gm 50 ML IV ONE (13:57)
[2025-06-07] MEDS ORDERED: AZIT-164 PO (16:44)
[2025-06-07 16:57] VITALS: BP 148/82; PULSE 85; RESP 16; O2SAT 98
== END 2025-06-07 17:03 | disposition home or self-care (01) ==
LOC: ER 04:45
DX: J32.9 Chronic sinusitis, unspecified (principal)
CPT/HCPCS: 36415; 70487; 80053; 83735; 85025; 85651; 86140; 96365; 96366; 96375; 96376; 99285; J0696; J1171; J2270; J2405; J3010; Q9967